=== PATIENT | male | born 1990 | race Caucasian/White ===

== ENCOUNTER → 2018-05-11 18:51 | Outpatient (CLI) | payer OTHER, SELFPAY ==
[2018-05-11 19:38] LABS: Basophils % 0.4 % (0.1-2.0); Eosinophils % 28.8 % (0.1-12.0); Hematocrit 43.3 % (42.0-52.0); Hemoglobin 14.5 g/dL (14.1-18.0); Lymphocytes # 1.9 K/mm3 (0.7-4.5); Lymphocytes % 18.4 % (10-50); Mean Corpuscular HGB Conc 33.6 g/dL (31.8-35.4); Mean Corpuscular Hemoglobin 29.6 pg (27.0-31.2); Mean Corpuscular Volume 88.2 fl (80-94); Mean Platelet Volume 8.4 fl (7.4-10.4); Monocytes # 0.5 K/mm3 (0.1-1.0); Monocytes % 4.9 % (1.7-9.3); Neutrophils # 4.9 K/mm3 (1.8-7.8); Neutrophils % 47.4 % (37.0-80.0); Platelet Count 241 K/mm3 (142-424); Red Blood Count 4.91 M/mm3 (4.60-6.20); Red Cell Distribution Width 12.4 % (11.5-17.5); White Blood Count 10.3 K/mm3 (4.8-10.8)
[2018-05-11 19:52] LABS: Amphetamine/Metha Screen,Urine Negative ng/mL (<1000); Barbiturates Screen,Urine Negative ng/mL (<200); Benzodiazepines Screen,Urine Negative ng/mL (<200); Cannabinoid Screen,Urine Negative ng/mL (<50); Cocaine Screen,Urine Negative ng/mL (<300); Methadone Screen,Urine Negative ng/mL (<300); Opiate Screen,Urine Negative ng/mL (<300); Phencyclidine Screen,Urine Negative ng/mL (<25)
== END ==
LOC: LAB 18:52 → LAB.DROPOF 05-12 09:56
PROVIDERS: Visit Provider Physician Assistant
DX: R16.1 Splenomegaly, not elsewhere classified (principal)
CPT/HCPCS: 80305; 85025

== ENCOUNTER → 2018-05-18 15:38 | Outpatient (CLI) | payer OTHER, SELFPAY ==
[2018-05-18 16:18] LABS: Basophils # 0.1 K/mm3 (0-0.2); Basophils % 0.7 % (0.1-2.0); Eosinophils # 1.8 K/mm3 (0.0-0.4); Eosinophils % 17.9 % (0.1-12.0); Hematocrit 44.9 % (42.0-52.0); Hemoglobin 14.9 g/dL (14.1-18.0); Lymphocytes # 3.2 K/mm3 (0.7-4.5); Lymphocytes % 31.2 % (10-50); Mean Corpuscular HGB Conc 33.1 g/dL (31.8-35.4); Mean Corpuscular Volume 87.5 fl (80-94); Mean Platelet Volume 8.1 fl (7.4-10.4); Monocytes # 0.6 K/mm3 (0.1-1.0); Monocytes % 5.5 % (1.7-9.3); Neutrophils # 4.6 K/mm3 (1.8-7.8); Neutrophils % 44.6 % (37.0-80.0); Platelet Count 278 K/mm3 (142-424); Red Blood Count 5.13 M/mm3 (4.60-6.20); Red Cell Distribution Width 12.5 % (11.5-17.5); White Blood Count 10.2 K/mm3 (4.8-10.8)
[2018-05-22 15:27] LABS: Strongyloides IgG Antibody Negative (Negative)
== END ==
PROVIDERS: Visit Provider Physician Assistant
DX: D72.1 Eosinophilia (principal)
CPT/HCPCS: 85025; 86682; 87177

== ENCOUNTER → 2018-05-19 08:22 | Outpatient (CLI) | payer OTHER, SELFPAY ==
--- NOTE | 2018-05-19 08:23 | US_ITS ---
US abdomen limited History:Upper abdominal pain Ordering Physician:TIFFANIE Kerr Patient Age: 28 years Comparison:None Findings: Pancreas:Unremarkable. No obvious mass or abnormal fluid collection. No ductal dilatation Liver:No focal liver lesions demonstrated. Homogeneous echogenicity. No intrahepatic biliary ductal dilatation evident Right Kidney:Unremarkable. Normal size and echogenicity. No hydronephrosis Gallbladder: Gallbladder wall slightly thickened at 4 mm. No pericholecystic fluid or gallstones or biliary dilatation. Common duct is 3 mm. IMPRESSION: Mild gallbladder wall thickening is nonspecific otherwise negative right upper quadrant ultrasound. No gallstones or other significant anomalies
== END ==
PROVIDERS: PCP Physician Assistant; Visit Provider Physician Assistant
DX: R10.13 Epigastric pain (principal)
CPT/HCPCS: 76705

== ENCOUNTER → 2018-08-25 15:48 | Outpatient (CLI) | payer OTHER, SELFPAY ==
[2018-08-25 16:34] LABS: T4 (Thyroxine) 8.7 ug/dl (4.7-13.3); Thyroid Stimulating Hormone 0.57 uIU/ml (0.358-3.740)
== END ==
PROVIDERS: Visit Provider Nurse Practitioner Family
DX: R63.4 Abnormal weight loss (principal)
CPT/HCPCS: 84436; 84443

== ENCOUNTER → 2018-10-05 09:33 | Outpatient (CLI) | payer OTHER, SELFPAY ==
--- NOTE | 2018-10-05 09:40 | XR_ITS ---
XR wrist RT min 3V, XR wrist LT min 3V Ordering Physician: Danilo Yoder Patient Age: 28 years: Male HISTORY: ITS.REASON: wrist painmass Bilateral wrist pain tingling in fingertips TECHNIQUE: Right wrist 3 views Left wrist 3 view. COMPARISON : Left forearm from 2011 RIGHT WRIST 3 VIEWS No fracture nor dislocation. Normal relationships. Bones well mineralized. No erosions. Upper normal prominence of the anterior fat pad at wrist IMPRESSION negative right wrist. WNL LEFT WRIST 3 VIEW. No acute fracture nor dislocation. There is 2 small ossifications seen just distal to the distal ulna and ulnar styloid. The largest 5 mm ovoid osseous density distal to the ulnar styloid- could reflect old fracture here versus dystrophic calcification or accessory ossification.. A tiny 2 mm calcification just proximal to this also noted with same considerations Perhaps very slight very subtle ulnar negative variant question of the left wrist and could contribute to this appearance as well Otherwise the left wrist intact and unremarkable. The distal radius appears normal with normal radial carpal relationships. Bones well mineralized. No erosions. . IMPRESSION: 2 tiny osseous corticated old fragments seen just distal to the ulnar styloid. Suspect more likely old healed fracture or old injury.... Less likely accessory ossicle associated,with very slight ulnar negative variance.. Otherwise the left wrist intact and unremarkable. No erosions normal carpal relationships in appearance
== END ==
PROVIDERS: PCP Emergency Medicine; Visit Provider Nurse Practitioner Family
DX: R20.0 Anesthesia of skin (principal); R20.2 Paresthesia of skin
CPT/HCPCS: 73110

== ENCOUNTER → 2018-10-16 10:09 | Outpatient (CLI) | payer OTHER, SELFPAY ==
[2018-10-18 06:56] LABS: Vitamin D 25 Hydroxy 20.4 ng/mL (30.0-100.0)
[2018-10-18 06:57] LABS: Vitamin B12 799 pg/mL (232-1245)
[2018-10-18 16:08] LABS: Testosterone, Total, LC/MS 304.5 ng/dL (264.0-916.0); Testosterone,Free 6.3 pg/mL (9.3-26.5)
== END ==
PROVIDERS: Visit Provider Nurse Practitioner Psychiatric/Mental Health
DX: R53.83 Other fatigue (principal); E55.9 Vitamin D deficiency, unspecified; E29.1 Testicular hypofunction
CPT/HCPCS: 36415; 82607; 82652; 84402; 84403

== ENCOUNTER → 2019-01-08 08:08 | Outpatient (POV) | payer OTHER, SELFPAY | PROVIDERS: PCP Specialist; Visit Provider Specialist | DX: R20.0 Anesthesia of skin (principal); R20.2 Paresthesia of skin | CPT/HCPCS: 95886; 95910 ==

== ENCOUNTER 2019-12-05 14:33 | Emergency (ER) | payer SELFPAY ==
[2019-12-05 14:45] VITALS: BP 144/85; PULSE 74; RESP 16; TEMP 36.8; O2SAT 99; BMI 19.0
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
[2019-12-05 15:20] VITALS: BP 140/80; PULSE 70; RESP 16; TEMP 36.7; O2SAT 98
== END 2019-12-05 15:25 | disposition home or self-care (01) ==
PROVIDERS: Emergency Provider Nurse Practitioner; PCP Emergency Medicine
DX: S09.90XA Unspecified injury of head, initial encounter (principal); Z02.89 Encounter for other administrative examinations; V53.5XXA Driver of pick-up truck or van injured in collision with car, pick-up truck or van in traffic accident, initial encounter; Y92.488 Other paved roadways as the place of occurrence of the external cause; F41.8 Other specified anxiety disorders; F17.210 Nicotine dependence, cigarettes, uncomplicated
CPT/HCPCS: 99201

== ENCOUNTER 2020-01-03 11:58 | Emergency (ER) | payer MEDICAID, SELFPAY ==
[2020-01-03 12:01] VITALS: BP 125/80; PULSE 87; RESP 17; TEMP 36.8; O2SAT 97; BMI 20.3
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
--- NOTE | 2020-01-03 12:35 | PC.NURSE ---
Pt is with rad. v/s delayed.
[2020-01-03 12:49] VITALS: BP 127/80; PULSE 86; O2SAT 97
[2020-01-03 13:50] VITALS: BP 125/62; PULSE 100; RESP 20; O2SAT 97
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
[2020-01-03 14:02] VITALS: BP 125/87; PULSE 80; RESP 20; TEMP 36.8; O2SAT 98
== END 2020-01-03 14:04 | disposition home or self-care (01) ==
PROVIDERS: Emergency Provider Family Medicine; PCP Emergency Medicine
DX: S10.93XA Contusion of unspecified part of neck, initial encounter (principal); W22.8XXA Striking against or struck by other objects, initial encounter; Y92.9 Unspecified place or not applicable; Z88.0 Allergy status to penicillin; F41.8 Other specified anxiety disorders; F17.210 Nicotine dependence, cigarettes, uncomplicated
CPT/HCPCS: 70450; 70486; 72125; 99282

== ENCOUNTER 2020-02-14 20:05 | Emergency (ER) | payer MEDICAID, SELFPAY ==
[2020-02-14 20:23] VITALS: BP 137/88; PULSE 96; RESP 14; TEMP 36.4; O2SAT 100; BMI 18.3
[2020-02-14 20:42] VITALS: BP 137/88; PULSE 96; RESP 14; TEMP 36.4; O2SAT 100; BMI 18.3
--- NOTE | 2020-02-14 20:46 | HMH.EDUTC ---
[facility] [place] Disposition Clinical Impression: Constipation Qualifiers: Constipation type: unspecified constipation type Qualified Code(s): K59.00 - Constipation, unspecified Disposition: Home, Self-Care Condition on Discharge: Good Instructions: Constipation, DI for Constipation, Polyethylene Glycol 3350, DI for Nausea -- Adult Additional Instructions: Make sure that you are drinking plenty of fluids like water *Take Mirlax as prescribed to help with passing of dry and hard stool *Follow up with Family Doctor immediately if no improvement or if area in your lower abdomen recurs Follow up with Family doctor for further testing and evaluation Straight to ER if any worsening of symptoms or any life threatening symptoms Return if needed Prescriptions: Ondansetron [Zofran 4mg ODT] 4 mg PO Q8HP PRN #6 tab PRN Reason: Nausea Transmission Status: Pending to [id number] polyethylene glycoL 3350 [Miralax 17gm Packet] 17 gm PO DAILY #30 packet Transmission Status: Received by [id number] Referrals: PCP,No [Primary Care Provider] - As needed Forms: Work/School Release Medical Decision Making - Nelson Inquiry Pt receiving controlled substance: No Nelson was queried for this patient: No Vital Signs: 02/14/20 20:23 02/14/20 20:42 Temperature 97.6 F 97.6 F Temperature Source Oral Oral Pulse Rate [Right] 96 H 96 H Respiratory Rate 14 14 Blood Pressure [Left Arm] 137/88 137/88 Blood Pressure Mean [Left Arm] 104 104 Blood Pressure Source [Left Arm] Automatic Cuff Automatic Cuff Blood Pressure Position [Left Arm] Sitting Sitting 02 Sat by Pulse Oximetry 100 100 Oxygen Delivery Method Room Air Room Air Medical Decision Narrative: Discussed with patient that if he is still having abdominal pain that he could be transferred back to the ED for further work up and evaluation. States that he did not want to go to ER that his pain was better now and knot was gone Recommended if patient is having issues with Constipation that he start taking Mirlax to help with softening the stool and follow up with Family Doctor immediately for further testing and evaluation of possible hernia or other stomach problems patient agreed and again recommended transfer to the ED for possible CT or work up and patient declined at this time [facility] [place] HPI - General Stated complaint: Poss allergic reaction, hernia pain Time Seen by Provider: 02/14/20 20:46 Mode of Arrival: Ambulatory Source of Information: Patient Limitations: No Limitations Description of Symptoms (Recalled from Triage Doc. by RN): Pt states he is constipated and feels hot and flushed - History of Present Illness Provider Complaint: Patient states that earlier he felt like he was constipated and was on the toilet straining to go and felt warm and flush States that he noticed it looked like a little knot popped out in his lower groin area but then went away after he stopped straining States that this has been happening on and off for years and has always had issues with constipation States that someone had given him some powder' once and it helped some States that he is feeling better now but still came in - Related Data Home Medications Medication Instructions Recorded Confirmed buprenorphine 8 mg-naloxone 2 mg 8 mg SUBLINGUAL DAILY 7 Days #14 08/25/12/05/19 sublingual tablet tab Previous Rx's Medication Instructions Recorded Ondansetron [Zofran 4mg ODT] 4 mg PO Q8HP PRN #6 tab 02/14/20 polyethylene glycoL 3350 [Miralax 17 gm PO DAILY #30 packet 02/14/20 17gm Packet] Allergies Allergy/AdvReac Type Severity Reaction Status Date / Time penicillin G [PENICILLIN G] Allergy Mild Verified 12/05/19 14:59 [facility] History - Hepatitis A Screen Attestation statement:: This patient has been screened for Hepatitis A risk factors. I have reviewed the patient's past medical history: Yes Medical History: Reports:: Anxiety, Depression
[2020-02-14 21:08] VITALS: BP 137/88; PULSE 96; RESP 14; TEMP 36.4; O2SAT 100
== END 2020-02-14 21:12 | disposition home or self-care (01) ==
LOC: ER 20:24 → UTC 20:25
PROVIDERS: Emergency Provider Nurse Practitioner
DX: K59.00 Constipation, unspecified (principal); F41.8 Other specified anxiety disorders; F17.210 Nicotine dependence, cigarettes, uncomplicated; Z88.0 Allergy status to penicillin
CPT/HCPCS: 99201

== ENCOUNTER 2020-12-05 17:39 | Emergency (ER) | payer OTHER, SELFPAY ==
[2020-12-05 17:40] VITALS: BP 132/70; PULSE 92; RESP 18; TEMP 36.7; O2SAT 100; BMI 19.5
--- NOTE | 2020-12-05 18:18 | HMH.EDUTC ---
[facility] [place] Disposition Clinical Impression: Enlarged lymph nodes in armpit, Rash Disposition: Home, Self-Care Condition on Discharge: Good Instructions: DI for Rash Additional Instructions: follow up with pcp change deodorant Prescriptions: Sulfamethoxazole/Trimethoprim [Bactrim DS tablet] 1 each PO BID 10 Days #20 tab Transmission Status: Pending to [id number] Referrals: Danilo Yoder APRN [Primary Care Provider] - Time of Disposition: 18:25 Medical Decision Making - Nelson Inquiry Pt receiving controlled substance: No Vital Signs: 12/05/20 17:40 Temperature 98.0 F Temperature Source Temporal Artery Scan Pulse Rate [Right Brachial] 92 H Respiratory Rate 18 Blood Pressure [Right Arm] 132/70 Blood Pressure Mean [Right Arm] 90 Blood Pressure Source [Right Arm] Automatic Cuff Blood Pressure Position [Right Arm] Sitting 02 Sat by Pulse Oximetry 100 Oxygen Delivery Method Room Air [facility] [place] HPI - General Chief complaint: Urgent [facility] Stated complaint: rash on both arms Time Seen by Provider: 12/05/20 18:18 Mode of Arrival: Ambulatory Source of Information: Patient, Spouse Limitations: No Limitations Description of Symptoms (Recalled from Triage Doc. by RN): PATIENT C/O RASH WITH BLISTERS UNDER BILATERAL ARMPITS X 3 DAYS. C/O BURNING AND THROBBING TO RASH AREAS HEENT Symptoms (Recalled from RN notes): No Resp Symptoms (Recalled from RN notes): No Skin Symptoms (Recalled from RN notes): Yes MS Symptoms (Recalled from RN notes): No Functional Status (Recalled from RN notes): WNL - History of Present Illness Provider Complaint: 30 yr old male presents for painful rash unber both arms, pt states he has small knots and they are tender - Related Data Home Medications Medication Instructions Recorded Confirmed buprenorphine 8 mg-naloxone 2 mg 8 mg SUBLINGUAL DAILY 7 Days #14 08/25/18 12/05/20 sublingual tablet tab Previous Rx's Medication Instructions Recorded Sulfamethoxazole/Trimethoprim 1 each PO BID 10 Days #20 tab 12/05/20 [Bactrim DS tablet] Allergies Allergy/AdvReac Type Severity Reaction Status Date / Time penicillin G [PENICILLIN G] Allergy Mild Verified 12/05/19 14:59 - Worker's Comp Is this a Worker's Comp case?: No [facility] History - Hepatitis A Screen Drug use history?: No High risk sexual behaviors?: No History of sexually transmitted infection?: No Currently employed?: No Childcare worker?: No Do you have indoor plumbing?: Yes Do you have electricity?: Yes Attestation statement:: This patient has been screened for Hepatitis A risk factors. I have reviewed the patient's past medical history: Yes Medical History: Reports:: Anxiety, Depression Laterality Cases: Bilateral: Other Amputation: No Fractures: No Comment: Left elbow at [facility] 13 years ago. - 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 Smoking Status: Current every day smoker Tobacco Type: cigarettes # Packs/Day (cigarettes): 1 Alcohol Intake: never Substance Use Type: heroin, other, former substance user, opiates Occupational Status: other Housing: house - Psychiatric History Pschychiatric History:: Reports:: Anxiety, Depression Family Hx:: No significant family history ROS Obtained: Yes Systems reviewed as appropriate & no additional complaints - Constitutional Constitutional: Reports system reviewed and no additional complaints, except as docu, Denies fever(s) - Eyes Eyes: Reports system reviewed and no additional complaints, except as docu, Denies change in vision - ENT Ears, Nose, Mouth, and Throat: Reports system reviewed and no additional complaints, except as docu, Denies sore throat - Cardiovascular Cardiovascular: Reports system reviewed and no additional complaints, except as docu, Denies chest pain at rest - Respiratory Respiratory: Reports system reviewed and no additional complaints, except as docu, Denies change in phlegm color - Gastrointestinal Gastrointestingal: Reports: system
[2020-12-05 18:24] VITALS: BP 132/70; PULSE 92; RESP 18; TEMP 36.7; O2SAT 100
== END 2020-12-05 18:31 | disposition home or self-care (01) ==
PROVIDERS: Emergency Provider Nurse Practitioner Family; PCP Nurse Practitioner Family
DX: R59.0 Localized enlarged lymph nodes (principal); F41.8 Other specified anxiety disorders; F17.210 Nicotine dependence, cigarettes, uncomplicated
CPT/HCPCS: 99202; G0463

== ENCOUNTER 2021-03-01 13:00 | Emergency (ER) | payer OTHER, SELFPAY ==
[2021-03-01 15:30] VITALS: BP 129/78; PULSE 83; RESP 14; TEMP 36.6; O2SAT 100; BMI 19.6
--- NOTE | 2021-03-01 16:01 | HMH.EDUTC ---
[facility] [place] Clinical Impression: Upper respiratory infection, Exposure to COVID-19 virus Disposition: Home, Self-Care Condition on Discharge: Good Instructions: Preventing the Spread of Coronavirus Discharge Instructions Additional Instructions: You have been tested for COVID19. Please isolate yourself as if you are positive until test results received. Referrals: Provider,Referral, [Primary Care Provider] - Forms: Work/School Release Time of Disposition: 16:04 Medical Decision Making - Nelson Inquiry Pt receiving controlled substance: No Vital Signs: 03/01/21 15:30 Temperature 98 F Temperature Source Oral Pulse Rate [Left] 83 Respiratory Rate 14 Blood Pressure [Right Arm] 129/78 Blood Pressure Mean [Right Arm] 95 02 Sat by Pulse Oximetry 100 Orders (Tests/Meds): ORDERS Category Date Time Status Covid-19 Nasal PCR ([facility]) Routine Lab 03/01/21 15:36 Received [facility] [place] HPI - General Stated complaint: sore throat, weakness, v/d sob Time Seen by Provider: 03/01/21 16:01 Mode of Arrival: Ambulatory Source of Information: Patient Limitations: No Limitations Description of Symptoms (Recalled from Triage Doc. by RN): pt c/o of n/v, body aches, dizziness, THACKER and lethargy. HEENT Symptoms (Recalled from RN notes): Yes (THACKER and dizziness) Resp Symptoms (Recalled from RN notes): No Skin Symptoms (Recalled from RN notes): No MS Symptoms (Recalled from RN notes): No Functional Status (Recalled from RN notes): lethargy and body aches - History of Present Illness Provider Complaint: Headache, sore throat, body aches, N/V/D, shortness of breath, wheezing X 4 days. Feeling better today. Exposed to COVID19 at work. Onset (ago): day(s) (4) Relieving factors: none Exacerbating factors: none Associated symptoms: cough, fever/chills, headaches, malaise, nausea/vomiting, weakness Treatments prior to arrival: none - Related Data Home Medications Medication Instructions Recorded Confirmed buprenorphine 8 mg-naloxone 2 mg 8 mg SUBLINGUAL DAILY 7 Days #14 08/25/18 12/05/20 sublingual tablet tab Previous Rx's Medication Instructions Recorded Sulfamethoxazole/Trimethoprim 1 each PO BID 10 Days #20 tab 12/05/20 [Bactrim DS tablet] Allergies Allergy/AdvReac Type Severity Reaction Status Date / Time penicillin G [PENICILLIN G] Allergy Mild Verified 12/05/19 14:59 - Worker's Comp Is this a Worker's Comp case?: No [facility] History - Hepatitis A Screen Drug use history?: No High risk sexual behaviors?: No History of sexually transmitted infection?: No Currently employed?: No Childcare worker?: No Do you have indoor plumbing?: Yes Do you have electricity?: Yes Attestation statement:: This patient has been screened for Hepatitis A risk factors. I have reviewed the patient's past medical history: Yes Medical History: Reports:: Anxiety, Depression Laterality Cases: Bilateral: Other Amputation: No Fractures: No Comment: Left elbow at 14 years ago. - 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 Smoking Status: Current every day smoker Tobacco Type: cigarettes # Packs/Day (cigarettes): 1 Alcohol Intake: never Substance Use Type: heroin, other, former substance user, opiates Occupational Status: other Housing: house - Psychiatric History Pschychiatric History:: Reports:: Anxiety, Depression Family Hx:: No significant family history ROS Obtained: Yes All systems reviewed & no additional complaints - Constitutional Constitutional: Reports body ache, Reports chills, Reports fatigue, Reports fever(s), Reports malaise - ENT Ears, Nose, Mouth, and Throat: Reports sinus pressure, Reports sore throat - Respiratory Respiratory: Reports cough - Gastrointestinal Gastrointestingal: Reports: loose stools, nausea, vomiting Physical Exam - General General appearance: alert, in no apparent distress - Head Head exam: normocephalic - Eye Eye exam: Present: PERRL - ENT ENT exam: Present: normal simon
[2021-03-01 16:30] VITALS: BP 129/78; PULSE 82; RESP 18; TEMP 36.6
== END 2021-03-01 16:30 | disposition home or self-care (01) ==
PROVIDERS: Emergency Provider Physician Assistant
DX: J06.9 Acute upper respiratory infection, unspecified (principal); Z20.822 Contact with and (suspected) exposure to COVID-19; F17.210 Nicotine dependence, cigarettes, uncomplicated
CPT/HCPCS: 99202; G0463; U0003

== ENCOUNTER 2021-08-04 19:04 | Emergency (ER) | payer OTHER, SELFPAY ==
[2021-08-04 20:10] VITALS: BP 136/86; PULSE 64; RESP 18; TEMP 36.7; O2SAT 99; BMI 17.8
[2021-08-04 20:40] VITALS: BP 136/86; PULSE 64; RESP 18; TEMP 36.7; O2SAT 99
== END 2021-08-04 20:43 | disposition left against medical advice (07) ==
LOC: UTC 19:10
PROVIDERS: Emergency Provider Nurse Practitioner; PCP Nurse Practitioner Family
DX: Z20.822 Contact with and (suspected) exposure to COVID-19 (principal)
CPT/HCPCS: C9803; U0003; U0005

== ENCOUNTER 2021-08-31 08:05 | Emergency (ER) | payer OTHER, SELFPAY ==
[2021-08-31 08:07] VITALS: BP 123/64; PULSE 75; RESP 16; TEMP 37; O2SAT 100; BMI 18.3
--- NOTE | 2021-08-31 09:00 | PC.NURSE ---
pt presented in ER said he had acid in his right eye pt unable to open eye immediately started flushing eye , tetracaine used pt was able to open eye and vsion was good just some redness and alot of burning go lense applied with NACL flushing eye
[2021-08-31 10:10] VITALS: BP 129/67; PULSE 79; RESP 18; O2SAT 100
--- NOTE | 2021-08-31 10:22 | PC.NURSE ---
message left for Dr Sheehan
--- NOTE | 2021-08-31 10:37 | PC.NURSE ---
MD at bedside speaking with patient
--- NOTE | 2021-08-31 10:47 | HMH.EDEYEP ---
ED Disposition Clinical Impression: Eye burn Disposition: Home, Self-Care Condition on Discharge: Good Instructions: DI for Chemical Eye Burn Additional Instructions: Please go straight to [facility] to be evaluated by ophthalmology physician, Dr. Hernandez at [address] [place] [id number]. Phone number [phone]. Referrals: Danilo Yoder APRN [Primary Care Provider] - Time of Disposition: 11:30 - Critical Care Critical Care Time: No Attestation: On 08/31/21, the high probability of a clinically significant, sudden or life threatening deterioration of the following system(s) required my full and direct attention, intervention and personal management. The time I documented below is in addition to time spent performing reported procedures but includes the following listed in this critical care notation. Medical Decision Making - Medical Records Medical records reviewed: Yes: I reviewed the patient's medical records. - Nelson Inquiry Pt receiving controlled substance: No Vital Signs: 08/31/21 08:07 08/31/21 10:10 08/31/21 11:23 Temperature 98.6 F 98.3 F Temperature Source Oral Oral Pulse Rate 79 80 Pulse Rate [Left Radial] 75 Respiratory Rate 16 18 16 Blood Pressure 129/67 110/70 Blood Pressure [Right Arm] 123/64 Blood Pressure Mean [Right Arm] 83 Blood Pressure Source Automatic Cuff Blood Pressure Source [Right Arm] Automatic Cuff Blood Pressure Position Sitting Blood Pressure Position [Right Arm] Sitting 02 Sat by Pulse Oximetry 100 100 Oxygen Delivery Method Room Air Room Air - Lab Data Lab results reviewed: Yes: I reviewed the patient's lab results. Medical Decision Narrative: Mr. Kohler is a 31 yo male w/ no significant PMH who presents to the ED for isolated (L) eye caustic splash. Patient is hemodynamically stable on arrival. Physical exam patient has blurry vision in (L) eye with conjunctiva erythema. Patient has photophobia and copious clear tears from eye. Mortan Ludwig Lens is placed on the patients eye irrigated with 350ml of normal saline. Visual aquity is rechecked, patients has clear vision now, burning has resolved. He reports a foreign body sensation but denies any other symptoms. Opthamology, Dr. Hernandez is consulted and will see patient in office today. Patient is sent to Opthamology's office for further management with eye patch to help with light sensitivity. Eye Problem HPI - General Chief complaint: Eye Problems Stated complaint: sodium hydroxice in left eye Time Seen by Provider: 08/31/21 08:15 Mode of Arrival: Ambulatory Source of Information: Patient Limitations: No Limitations Description of Symptoms (Recalled from ER Triage Doc. by RN): c/o some errosion solution splashed in his left eye approx 30 minutes prior to arrival. Flushed eye at worksite and then proceeded to er - History of Present Illness HPI Narrative: Mr. Kohler is a 31 yo male w/ no significant PMH who presents to the ED after getting a caustic agent, NaOH in his (L) eye. Patient reports he was working and splashed sodium hydroxide accidentally into his (L) eye. Immediately following this he reports burning sensation. He took vinegar to irrigate his eye and came straight ot emergency department. He reports he can see but vision is blurry. No obvious foreign bodies noted. - Related Data Home Medications Medication Instructions Recorded Confirmed buprenorphine 8 mg-naloxone 2 mg 8 mg SUBLINGUAL DAILY 7 Days #14 08/25/18 08/04/21 sublingual tablet tab Allergies Allergy/AdvReac Type Severity Reaction Status Date / Time penicillin G [PENICILLIN G] Allergy Mild Verified 12/05/19 14:59 H History - Hepatitis A Screen Drug use history?: Yes High risk sexual behaviors?: No History of sexually transmitted infection?: No Currently employed?: No Childcare worker?: No Do you have indoor plumbing?: Yes Do you have electricity?: Yes Attestation statement:: This pat
--- NOTE | 2021-08-31 10:48 | PC.NURSE ---
Dr Sheehan returned page, spoke with dr Cruz, he advised to send pt to his office.
[2021-08-31 11:23] VITALS: BP 110/70; PULSE 80; RESP 16; TEMP 36.8; O2SAT 98
== END 2021-08-31 11:26 | disposition home or self-care (01) ==
PROVIDERS: Emergency Provider Student in an Organized Health Care Education/Training Program; PCP Nurse Practitioner Family
DX: T54.3X1A Toxic effect of corrosive alkalis and alkali-like substances, accidental (unintentional), initial encounter (principal); T26.62XA Corrosion of cornea and conjunctival sac, left eye, initial encounter; Y92.63 Factory as the place of occurrence of the external cause; Y99.0 Civilian activity done for income or pay; Z88.0 Allergy status to penicillin
CPT/HCPCS: 99283

== ENCOUNTER 2021-10-20 14:23 | Emergency (ER) | payer OTHER, SELFPAY ==
[2021-10-20 14:39] VITALS: BP 124/80; PULSE 101; RESP 16; TEMP 36.6; O2SAT 100; BMI 20.3
--- NOTE | 2021-10-20 15:12 | HMH.EDUTC ---
[facility] [place] Dis[place] Clinical Impression: Otitis media Qualifiers: Otitis media type: suppurative Chronicity: acute Laterality: bilateral Recurrence: non-recurrent Spontaneous tympanic membrane rupture: without spontaneous rupture Qualified Code(s): H66.003 - Acute suppurative otitis media without spontaneous rupture of ear drum, bilateral Disposition: Home, Self-Care Condition on Discharge: Good Instructions: Middle Ear Infection Additional Instructions: Drink plenty of fluids. Take tylenol or ibuprofen for pain or fever. Take the medications as directed. Follow up with your regular doctor. GO TO THE ER FOR ANY WORSENING SYMPTOMS Prescriptions: Pseudoephedrine HCl 30 mg PO Q6HP PRN #30 tab PRN Reason: Congestion Transmission Status: Received by [facility] methylPREDNISolone [Medrol] 4 mg PO DIRECTED 6 Days #21 packet Transmission Status: Received by [facility] Cefdinir [Omnicef 300mg Capsule] 300 mg PO BID #20 cap Transmission Status: Received by [facility] Referrals: Danilo Yoder APRN [Primary Care Provider] - Forms: Work/School Release Time of Disposition: 15:17 Medical Decision Making - Medical Records Medical records reviewed: No: I reviewed the patient's medical records. - Nelson Inquiry Pt receiving controlled substance: No Vital Signs: 10/20/21 14:39 10/20/21 15:22 Temperature 97.8 F 97.8 F Temperature Source Oral Oral Pulse Rate 101 H Pulse Rate [Left] 101 H Respiratory Rate 16 16 Blood Pressure 124/80 Blood Pressure [Right Arm] 124/80 Blood Pressure Mean [Right Arm] 94 02 Sat by Pulse Oximetry 100 - Lab Data Lab results reviewed: Yes: I reviewed the patient's lab results. [facility] [place] HPI - General Stated complaint: left ear pain Time Seen by Provider: 10/20/21 15:15 Mode of Arrival: Ambulatory Description of Symptoms (Recalled from Triage Doc. by RN): pain started last night. left inner ear has been throbbing so bad that it feels like his jaw is popping out of place. pt states he can hardly touch ear ot put qtip in it. HEENT Symptoms (Recalled from RN notes): Yes Resp Symptoms (Recalled from RN notes): No Skin Symptoms (Recalled from RN notes): No MS Symptoms (Recalled from RN notes): Yes Functional Status (Recalled from RN notes): wnl - History of Present Illness Provider Complaint: He c/o left ear pain since yesterday. He denies any injury. - Related Data Home Medications Medication Instructions Recorded Confirmed buprenorphine 8 mg-naloxone 2 mg 8 mg SUBLINGUAL DAILY 7 Days #14 08/25/18 08/04/21 sublingual tablet tab Previous Rx's Medication Instructions Recorded Cefdinir [Omnicef 300mg Capsule] 300 mg PO BID #20 cap 10/20/21 Pseudoephedrine HCl 30 mg PO Q6HP PRN #30 tab 10/20/21 methylPREDNISolone [Medrol] 4 mg PO DIRECTED 6 Days #21 10/20/21 packet Allergies Allergy/AdvReac Type Severity Reaction Status Date / Time penicillin G [PENICILLIN G] Allergy Mild Verified 10/20/21 14:43 - Worker's Comp Is this a Worker's Comp case?: No Is this an H Worker's Comp?: No Is this a [place] Worker's Comp?: No [facility] History - Hepatitis A Screen Drug use history?: No High risk sexual behaviors?: No History of sexually transmitted infection?: No Currently employed?: No Childcare worker?: No Do you have indoor plumbing?: Yes Do you have electricity?: Yes Attestation statement:: This patient has been screened for Hepatitis A risk factors. I have reviewed the patient's past medical history: Yes Medical History: Reports:: Anxiety, Depression Laterality Cases: Bilateral: Other Amputation: No Fractures: No Comment: Left elbow at 14 years ago. - 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 Smoking Status: Unknown if ever smoked Tobacco Type: smokeless tobacco # Packs/Day (cigarettes): 0 Alcohol Intake: never Substance Use Type: heroin, other, former substance user, opiates Occupational Status
[2021-10-20 15:22] VITALS: BP 124/80; PULSE 101; RESP 16; TEMP 36.6
== END 2021-10-20 15:23 | disposition home or self-care (01) ==
PROVIDERS: Emergency Provider Nurse Practitioner Family; PCP Nurse Practitioner Family
DX: H66.003 Acute suppurative otitis media without spontaneous rupture of ear drum, bilateral (principal); F41.8 Other specified anxiety disorders; Z88.0 Allergy status to penicillin
CPT/HCPCS: 99212; G0463

== ENCOUNTER 2021-10-27 16:00 | Emergency (ER) | payer OTHER, SELFPAY ==
[2021-10-27 16:11] VITALS: BP 141/93; PULSE 108; RESP 20; TEMP 36.6; O2SAT 97; BMI 20.3
--- NOTE | 2021-10-27 16:31 | HMH.EDUTC ---
[facility] [place] Disposition Clinical Impression: Otitis media Qualifiers: Otitis media type: unspecified Laterality: left Qualified Code(s): H66.92 - Otitis media, unspecified, left ear Otitis externa Qualifiers: Otitis externa type: unspecified type Chronicity: unspecified Laterality: left Qualified Code(s): H60.92 - Unspecified otitis externa, left ear Disposition: Home, Self-Care Condition on Discharge: Good Instructions: How to Instill Ear Drops, Azithromycin Additional Instructions: Stop Cefdinir and start azithromycin and ear drops as prescribed Follow up with Family Doctor or ENT if pain persists or no improvement Return if needed Over the counter Motrin and/or Tylenol may help with pain Straight to ER if any life threatening symptoms Prescriptions: Ciprofloxacin HCl/Dexameth [Cipro 0.3%-Dex 0.1% Otic Susp 7.5mL] 4 drops EAR-LEFT BID 7 Days #7.5 ml Transmission Status: Pending to [facility] Azithromycin [Z-Leon 250mg Tab] 250 mg PO DIRECTED #6 tab Transmission Status: Pending to [facility] Referrals: Danilo Yoder APRN [Primary Care Provider] - As needed Amado Lujan MD [Physician] - Jaxson Brenner MD [Physician] - Forms: Work/School Release Time of Disposition: 17:17 Medical Decision Making - Nelson Inquiry Pt receiving controlled substance: No Nelson was queried for this patient: No Vital Signs: 10/27/21 16:11 Temperature 97.8 F Temperature Source Oral Pulse Rate [Left] 108 H Respiratory Rate 20 Blood Pressure [Right Arm] 141/93 H Blood Pressure Mean [Right Arm] 109 02 Sat by Pulse Oximetry 97 [facility] [place] HPI - General Stated complaint: LEFT EAR AND LEFT JAW PAIN Time Seen by Provider: 10/27/21 17:05 Mode of Arrival: Ambulatory Source of Information: Patient Limitations: No Limitations Description of Symptoms (Recalled from Triage Doc. by RN): pt c/o left ear pain. he states that the pain is throbbing and he is now leaking infection from his ear. he states that it feels like the infection is now in his jaw and neck as well he has been on abx for 1 week. HEENT Symptoms (Recalled from RN notes): Yes Resp Symptoms (Recalled from RN notes): No Skin Symptoms (Recalled from RN notes): No MS Symptoms (Recalled from RN notes): No Functional Status (Recalled from RN notes): wnl - History of Present Illness Provider Complaint: Patient states that he has been on antibiotics for a week for ear infection States that it has got worse States that he has been taking the antibotics but now feels like he is having swelling and at times draining from that ear and pain in ear when he moves his jaw or opens his mouth States that today he was still having pain so he came in - Related Data Home Medications Medication Instructions Recorded Confirmed buprenorphine 8 mg-naloxone 2 mg 8 mg SUBLINGUAL DAILY 7 Days #14 08/25/18 08/04/21 sublingual tablet tab Previous Rx's Medication Instructions Recorded Cefdinir [Omnicef 300mg Capsule] 300 mg PO BID #20 cap 10/20/21 Pseudoephedrine HCl 30 mg PO Q6HP PRN #30 tab 10/20/21 methylPREDNISolone [Medrol] 4 mg PO DIRECTED 6 Days #21 10/20/21 packet Azithromycin [Z-Leon 250mg Tab] 250 mg PO DIRECTED #6 tab 10/27/21 Ciprofloxacin HCl/Dexameth [Cipro 4 drops EAR-LEFT BID 7 Days #7.5 ml 10/27/21 0.3%-Dex 0.1% Otic Susp 7.5mL] Allergies Allergy/AdvReac Type Severity Reaction Status Date / Time penicillin G [PENICILLIN G] Allergy Mild Verified 10/27/21 16:18 - Worker's Comp Is this a Worker's Comp case?: No Is this an H Worker's Comp?: No Is this a [place] Worker's Comp?: No [facility] History - Hepatitis A Screen Drug use history?: No High risk sexual behaviors?: No History of sexually transmitted infection?: No Currently employed?: No Childcare worker?: No Do you have indoor plumbing?: Yes Do you have electricity?: Yes Attestation statement:: This patient has been screened for Hepatitis A ris
[2021-10-27 17:20] VITALS: BP 141/93; PULSE 108; RESP 20; TEMP 36.6
== END 2021-10-27 17:21 | disposition home or self-care (01) ==
PROVIDERS: Emergency Provider Nurse Practitioner; PCP Nurse Practitioner Family
DX: H60.92 Unspecified otitis externa, left ear (principal); R68.84 Jaw pain; F32.A Depression, unspecified; F41.9 Anxiety disorder, unspecified; Z79.52 Long term (current) use of systemic steroids; Z88.0 Allergy status to penicillin
CPT/HCPCS: 99213; G0463

== ENCOUNTER 2021-10-28 22:24 | Emergency (ER) | payer OTHER, SELFPAY ==
[2021-10-28 23:05] VITALS: BP 0/0; PULSE 0; RESP 0; TEMP -17.7; TEMP 0; O2SAT 0
== END 2021-10-28 23:10 | disposition left against medical advice (07) ==
LOC: ER 23:09
PROVIDERS: Emergency Provider Emergency Medicine; PCP Nurse Practitioner Family
DX: H92.02 Otalgia, left ear (principal); Z53.21 Procedure and treatment not carried out due to patient leaving prior to being seen by health care provider
CPT/HCPCS: 99211

== ENCOUNTER 2022-01-24 11:10 | Emergency (ER) | payer OTHER, SELFPAY ==
[2022-01-24 11:11] VITALS: BP 120/91; PULSE 80; RESP 16; TEMP 36.6; O2SAT 100; BMI 19.0
[2022-01-24 11:16] VITALS: BP 120/91; PULSE 76; O2SAT 100
--- NOTE | 2022-01-24 11:22 | XR_ITS ---
PROCEDURE INFORMATION: Exam: XR Chest Exam date and time: 01/24/2022 11:43 AM Age: 31 years old Clinical indication: Shortness of breath; Patient HX: Covid positive; Additional info: Cough TECHNIQUE: Imaging protocol: Radiologic exam of the chest. Views: 1 view. COMPARISON: CR CXR2V XR chest 2V 03/12/2018 12:54 AM FINDINGS: Lungs: Unremarkable. No consolidation. Pleural spaces: Unremarkable. No pleural effusion. No pneumothorax. Heart/Mediastinum: Unremarkable. No cardiomegaly. Bones/joints: Unremarkable. IMPRESSION: No acute cardiopulmonary process is identified.
[2022-01-24 11:30] VITALS: BP 113/79; PULSE 71; O2SAT 100
--- NOTE | 2022-01-24 11:32 | PC.NURSE ---
rad here to take xrays of pt
--- NOTE | 2022-01-24 11:58 | HMH.EDGENADL ---
ED Disposition Clinical Impression: COVID-19 Disposition: Home, Self-Care Condition on Discharge: Fair Instructions: DI for COVID-19 (Suspected or Confirmed ) Additional Instructions: You have been evaluated for body aches, nausea, generalized malaise, likely due to COVID-19 virus. Please monitor your symptoms closely. Take Tylenol for aches, pains, fever. Take Zofran for nausea. Follow-up with your primary care doctor in 1 to 2 days for symptom recheck. Return to the emergency department at once for any new or worsening symptoms, difficulty breathing, chest pain, other concerns. Prescriptions: Ondansetron [Zofran 4mg ODT] 4 mg PO Q6 PRN #12 tab PRN Reason: Nausea Transmission Status: Pending to [facility] Referrals: Catherine Winchester MD [Primary Care Provider] - Time of Disposition: 12:06 - Critical Care Critical Care Time: No Attestation: On 01/24/22, the high probability of a clinically significant, sudden or life threatening deterioration of the following system(s) required my full and direct attention, intervention and personal management. The time I documented below is in addition to time spent performing reported procedures but includes the following listed in this critical care notation. Medical Decision Making - Medical Records Medical records reviewed: Yes: I reviewed the patient's medical records. - Nelson Inquiry Pt receiving controlled substance: No Vital Signs: 01/24/22 11:11 01/24/22 11:16 01/24/22 11:30 Temperature 97.8 F Temperature Source Oral Pulse Rate 76 71 Pulse Rate [Left Radial] 80 Respiratory Rate 16 Blood Pressure 120/91 H 113/79 Blood Pressure [Right Arm] 120/91 H Blood Pressure Mean 99 90 Blood Pressure Mean [Right Arm] 100 Blood Pressure Source [Right Arm] Automatic Cuff Blood Pressure Position [Right Arm] Sitting 02 Sat by Pulse Oximetry 100 100 100 Oxygen Delivery Method Room Air Orders (Tests/Meds): ED MEDICATIONS Discontinued Medications Generic Name Dose Route Start Last Admin Trade Name Freq PRN Reason Stop Dose Admin Acetaminophen 1,000 mg 01/24/22 11:35 01/24/22 11:41 Acetaminophen 500mg Tab PO 01/24/22 11:36 1,000 mg ONCE ONE Administration Ibuprofen 600 mg 01/24/22 11:36 01/24/22 11:42 Ibuprofen 600 Mg Tablet PO 01/24/22 11:37 600 mg ONCE ONE Administration Ondansetron HCl 4 mg 01/24/22 11:36 01/24/22 11:41 Ondansetron 4mg/5ml Nicole Udc PO 01/24/22 11:37 4 mg ONCE ONE Administration Medical Decision Narrative: In summary this is a previous healthy 31-year-old male presenting to the emergency department with body aches, fatigue, nausea, symptoms of COVID-19. Patient clinically stable on arrival. Vital signs within normal limits. He is afebrile. No respiratory difficulty. No hypoxia on room air. Will obtain screening chest x-ray. Given acetaminophen and Zofran. Chest x-ray reassuring. No focal opacity or multifocal pneumonia. On reassessment, patient is tolerating oral intake, Gatorade in the emergency department. He continues to feel generally unwell, body aches and malaise. Counseled him on supportive care. Do not believe that he would benefit from hospitalization. No respiratory difficulty at this time. Recommended he monitor his symptoms closely. Follow-up with PCP for symptom recheck. Given return precautions. Stable for discharge General Adult HPI - General Chief complaint: Upper Respiratory Infection Stated complaint: covid pos, worsening symptoms Time Seen by Provider: 01/24/22 11:29 Mode of Arrival: Ambulatory Source of Information: Patient Limitations: No Limitations Description of Symptoms (Recalled from ER Triage Doc. by RN): c/o THACKER, body aches since and n/v today. Tested positive for covid on with a home test - History of Present Illness HPI narrative: 31-year-old male presenting to the emergency department with cough,
[2022-01-24 12:06] VITALS: BP 122/79; PULSE 87; RESP 12; O2SAT 99
--- NOTE | 2022-01-24 12:12 | PC.NURSE ---
rounded on pt, no needs at this time, isolation precautions are in place
[2022-01-24 12:52] VITALS: BP 119/74; PULSE 85; RESP 18; TEMP 36.7; O2SAT 100
== END 2022-01-24 12:53 | disposition home or self-care (01) ==
PROVIDERS: Emergency Provider Emergency Medicine; PCP Family Medicine
DX: U07.1 COVID-19 (principal)
CPT/HCPCS: 71045; 99212; G0463; S0119

== ENCOUNTER 2023-03-11 16:03 | Emergency (ER) | payer OTHER, SELFPAY ==
--- NOTE | 2023-03-11 16:26 | HMH.EDGENADL ---
Discharge Plan Disposition Patient Disposition: Home, Self-Care Condition: Good Prescriptions Prescriptions: New azithromycin 500 mg tablet 500 mg PO DAILY 5 Days Qty: 5 0RF Discontinued azithromycin 250 MG tablet 250 mg PO DIRECTED Qty: 6 0RF Rx Instructions: Take two (2) tablets on day #1, then one (1) tablet day #2 thru #5 ciprofloxacin-dexamethasone 7.5 ML bottle 4 drops EAR-LEFT BID 7 Days Qty: 7.5 0RF Rx Instructions: apply drops to left ear as directed cefdinir 300 MG capsule 300 mg PO BID Qty: 20 0RF ondansetron 4 MG tablet,disintegrating 4 mg PO Q6 PRN (Reason: Nausea) Qty: 12 0RF No Action buprenorphine-naloxone 8-2 mg tablet, sublingual 8 mg SUBLINGUAL DAILY 7 Days Qty: 14 pseudoephedrine HCl 30 MG tablet 30 mg PO Q6HP PRN (Reason: Congestion) Qty: 30 0RF methylprednisolone 4 MG tablets,dose pack 4 mg PO DIRECTED 6 Days Qty: 21 0RF Referrals Follow up/Referrals: Provider,Referral, MD [Primary Care Provider] - See instructions Clinical Impressions Clinical Impression: Acute streptococcal pharyngitis Instructions Patient Instructions: Strep Throat, DI for Strep Throat Discharge ED Provider: Pillo Waterman General Adult HPI General Chief complaint: Upper Respiratory Infection Stated complaint: sore throat, body aches Time Seen by Provider: 03/11/23 16:25 History of Present Illness HPI narrative: Patient presents for evaluation of sore throat, generalized myalgias, gradual in onset starting over the past 48 hours, constant, stable in course, associated symptoms include decreased p.o. intake however patient's been able to tolerate p.o. No urinary symptoms, no chest pain or palpitations. No productive cough, no globus sensation. No trismus. No hoarseness. No known sick contacts. No recent travel. Patient does have history of drug abuse per my review of patient's electronic medical record, however he and family member at bedside deny that he has any recent intravenous drug use, has been compliant with methadone, they do note patient has used methamphetamine within the past 48 hours. This was not injected. No pain elsewhere. Related Data Home Medications Medication Instructions Recorded Confirmed buprenorphine 8 mg-naloxone 2 mg 8 mg sublingual DAILY addiction 7 08/25/18 08/04/21 sublingual tablet days #14 tabs Previous Rx's Medication Instructions Recorded methylprednisolone 4 mg tablets in 4 mg PO DIRECTED 6 days #21 10/20/21 a dose pack packets pseudoephedrine HCl 30 mg tablet 30 mg PO Q6HP PRN Congestion #30 10/20/21 tabs azithromycin 500 mg tablet 500 mg PO DAILY 5 days #5 tabs 03/11/23 Allergies Allergy/AdvReac Type Severity Reaction Status Date / Time penicillin G [PENICILLIN G] Allergy Mild Verified 10/27/21 16:18 [facility] Disclaimer: The information contained in this section may have been updated after the patient was seen, as this information can be updated by other users. 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 Smoking Status: Never smoker alcohol intake: never substance use type: former substance user, heroin, opiates and other current occupational status: other Travel in the last 8 weeks: None housing: house number of children: 2 ROS Obtained: Yes Systems reviewed as appropriate & no additional complaints except as documented Physical Exam General General appearance: alert and in no apparent distress Head Head exam: atraumatic and normocephalic Eye Eye exam: Present normal appearance ENT ENT exam: Present TM's normal bilaterally and other (Oropharyngeal erythema and exudate, no tonsillar unilateral hypertrophy, uvula midline. No trismus, no submandibular tenderness.) Neck Neck exam: Present normal inspection Chest Chest inspection: Present normal inspection and symmetric chest wall rise Respiratory Respiratory exam: Present normal lung sounds bilaterally; Absent respiratory distress
[2023-03-11 16:33] VITALS: BP 102/61; PULSE 106; RESP 20; TEMP 37; O2SAT 99; BMI 20.9
[2023-03-11 16:42] LABS: Coronavirus 19, PCR Not Detected (NotDetected); Influenza A, PCR Not Detected (NotDetected); Influenza B, PCR Not Detected (NotDetected)
[2023-03-11 16:48] LABS: Strep Scrn Group A (Rapid) Positive (Negative)
--- NOTE | 2023-03-11 16:50 | PC.NURSE ---
Pt ambulatory to bathroom and urine sample collected
[2023-03-11 16:54] LABS: Microscopic, Urine URINE MICROSCOPIC (MICROSCOPIC)
[2023-03-11 16:56] LABS: Appearance,Urine CLEAR (Clear); Bilirubin,Urine Negative (Negative); Blood, Urine Negative (Negative); Color,Urine YELLOW (Yellow); Glucose,Urine (UA) Negative (Negative); Ketones,Urine TRACE (Negative); Leukocyte Esterase,Urine Negative (Negative); Nitrate,Urine Negative (Negative); Protein,Urine Negative (Negative); Specific Gravity, Urine 1.025 (1.005-1.030)
[2023-03-11 17:16] LABS: Squamous Epithelial Cell,Urine Occasional #/hpf (0-5); WBC,Urine Occasional #/hpf (0-3)
[2023-03-11 17:22] VITALS: BP 115/72; PULSE 90; RESP 18; TEMP 36.6; O2SAT 99
== END 2023-03-11 17:24 | disposition home or self-care (01) ==
PROVIDERS: Emergency Provider Emergency Medicine
DX: J02.0 Streptococcal pharyngitis (principal)
CPT/HCPCS: 81001; 87430; 87636; 99284

== ENCOUNTER 2023-08-28 14:36 | Emergency (ER) | payer OTHER, SELFPAY ==
--- NOTE | 2023-08-28 14:34 | ECG_ITS ---
APPROVED REPORT Exam: Resting ECG HR:91 bpm ECG Measurements Heart Rate [address] 168 P 57 QRSd 90 QRS 60 QT 337 T 56 QTc 386 Conclusion SINUS RHYTHM NONSPECIFIC T-WAVE ABNORMALITY BORDERLINE ECG UNCONFIRMED REPORT Electronically signed by : Jordin Kirkland MD 08/29/2023 20:01:27
[2023-08-28 14:36] VITALS: BP 144/88; PULSE 102; RESP 18; TEMP 36.9; O2SAT 100; BMI 21.7
--- NOTE | 2023-08-28 14:41 | XR_ITS ---
PROCEDURE INFORMATION: Exam: XR Chest Exam date and time: 08/28/2023 2:38 PM Age: 33 years old Clinical indication: Sternal or substernal pain; Additional info: Chest pain TECHNIQUE: Imaging protocol: Radiologic exam of the chest. Views: 2 views. COMPARISON: CR XR CHEST PORTABLE 01/24/2022 11:43 AM FINDINGS: Lungs: Lungs are well aerated without a focal area of consolidation. Pleural spaces: Unremarkable. No pleural effusion. No pneumothorax. Heart/Mediastinum: Unremarkable. No cardiomegaly. Bones/joints: Unremarkable. IMPRESSION: Lungs are well aerated without a focal area of consolidation.
--- NOTE | 2023-08-28 14:47 | PC.NURSE ---
PT TO XR
--- NOTE | 2023-08-28 14:49 | PC.NURSE ---
PT RETURNED FROM XR
[2023-08-28 14:51] LABS: Influenza A, PCR Not Detected (NotDetected); Influenza B, PCR Not Detected (NotDetected)
[2023-08-28 14:53] LABS: Basophils % 0.7 % (0.1-2.0); Eosinophils # 0.1 K/mm3 (0.0-0.4); Eosinophils % 3.5 % (0.1-12.0); Hematocrit 41.6 % (42.0-52.0); Lymphocytes # 2.2 K/mm3 (0.7-4.5); Mean Corpuscular HGB Conc 33.8 g/dL (31.8-35.4); Mean Corpuscular Hemoglobin 30.2 pg (27.0-31.2); Mean Corpuscular Volume 89.4 fl (80-94); Mean Platelet Volume 8.6 fl (7.4-10.4); Monocytes # 0.5 K/mm3 (0.1-1.0); Monocytes % 10.8 % (1.7-9.3); Neutrophils # 1.3 K/mm3 (1.8-7.8); Neutrophils % 32.1 % (37.0-80.0); Platelet Count 211 K/mm3 (142-424); Red Blood Count 4.65 M/mm3 (4.60-6.20); Red Cell Distribution Width 12.6 % (11.5-17.5); White Blood Count 4.2 K/mm3 (4.8-10.8)
[2023-08-28 14:56] LABS: Chloride 101 mmol/L (98-107); Potassium 3.6 mmoL/L (3.5-5.1); Sodium 139 mmol/L (136-145)
[2023-08-28 14:59] LABS: Alanine Aminotransferase 44 U/L (12-78); Albumin Level 4.4 g/dl (3.5-5.0); Albumin/Globulin Ratio 1.4 (1.1-1.8); Alkaline Phosphatase 74 U/L (38-126); Anion Gap 5.6 mEq/L (5-15); Aspartate Amino Transferase 41 U/L (17-59); Bilirubin,Total 0.3 mg/dl (0.2-1.3); Blood Urea Nitrogen 17 mg/dl (9-20); Carbon Dioxide 36 mmol/L (22.0-30.0); Creatinine Clearance Estimated 109 mL/min (50-200); Estimated Glomerular Filt Rate 87 ml/min (>60); GFR (African American) 105 ML/MIN (>60); Globulin 3.1 g/dL (1.3-3.2); Total Protein,Serum 7.5 g/dl (6.3-8.2)
[2023-08-28 15:00] VITALS: BP 123/75; PULSE 88; RESP 16; O2SAT 99
[2023-08-28 15:00] LABS: Calcium 8.8 mg/dl (8.4-10.2); Glucose 106 mg/dl (74-100)
--- NOTE | 2023-08-28 15:00 | HMH.EDCP ---
Discharge Plan Disposition Patient Disposition: Home, Self-Care Prescriptions Prescriptions: New omwiavddnzpulqw-tuvszgjnw-NW [Bromfed DM] 2-30-10 mg/5 mL syrup 5 ml PO Q6H PRN (Reason: cold symptoms) Qty: 118 0RF No Action buprenorphine-naloxone 8-2 mg tablet, sublingual 8 mg SUBLINGUAL DAILY 7 Days Qty: 14 pseudoephedrine HCl 30 MG tablet 30 mg PO Q6HP PRN (Reason: Congestion) Qty: 30 0RF methylprednisolone 4 MG tablets,dose pack 4 mg PO DIRECTED 6 Days Qty: 21 0RF azithromycin 500 mg tablet 500 mg PO DAILY 5 Days Qty: 5 0RF Referrals Follow up/Referrals: Provider,Referral, MD [Primary Care Provider] - See instructions Activity Restrictions/Add. Instructions Additional Instructions/Restrictions: At this time it was felt you are safe to be discharged home. If new or worsening symptoms please do not hesitate to return the emergency department. If symptoms persist please follow-up with your family doctor as you are able. It is okay to return to work on Tuesday as long as you are fever free. Please take your medications as prescribed. Clinical Impressions Clinical Impression: COVID-19, Chest pain Discharge ED Provider: Hima Guo [facility] General Chief Complaint: Chest Pain Stated Complaint: chest pain Time Seen by Provider: 08/28/23 14:51 Mode of Arrival: Ambulatory Source of Information: Patient Limitations: No Limitations Description of Symptoms (Recalled from ER Triage Doc. by RN): Patient complaint of chest pain for the past couple of days. Does admit to meth use within the past week. History of Present Illness HPI narrative: Patient is a 33-year-old male with no pertinent past medical history presents emergency department for evaluation of chest pain. Patient has had upper respiratory symptoms, shortness of breath, cough, rhinorrhea, global headache over the last few days. Positive COVID test at home. Yesterday he developed left-sided chest pain that is worse with deep inspiration intermittently radiating down his left arm. Due to persistent symptoms he presents here for continued evaluation. Related Data Home Medications Medication Instructions Recorded Confirmed buprenorphine 8 mg-naloxone 2 mg 8 mg sublingual DAILY addiction 7 08/25/18 08/04/21 sublingual tablet days #14 tabs Previous Rx's Medication Instructions Recorded methylprednisolone 4 mg tablets in 4 mg PO DIRECTED 6 days #21 10/20/21 a dose pack packets pseudoephedrine HCl 30 mg tablet 30 mg PO Q6HP PRN Congestion #30 10/20/21 tabs azithromycin 500 mg tablet 500 mg PO DAILY 5 days #5 tabs 03/11/23 jvbwygrcbozfjgt-zjewlcrqsnaoylz-ZG 5 ml PO Q6H PRN cold symptoms #118 08/28/23 2 mg-30 mg-10 mg/5 mL oral syrup mL (Bromfed DM) Allergies Allergy/AdvReac Type Severity Reaction Status Date / Time penicillin G [PENICILLIN G] Allergy Mild Verified 10/27/21 16:18 [facility] Disclaimer: The information contained in this section may have been updated after the patient was seen, as this information can be updated by other users. 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 Smoking Status: Unknown if ever smoked alcohol intake: never substance use type: former substance user, heroin, opiates and other current occupational status: other Travel in the last 8 weeks: None housing: house number of children: 2 ROS Obtained: Yes Systems reviewed as appropriate & no additional complaints except as documented Physical Exam General General appearance: alert and in no apparent distress Head Head exam: atraumatic and normocephalic Eye Eye exam: Present PERRL ENT ENT exam: Present mucous membranes moist Neck Neck exam: Present normal inspection Chest Chest inspection: Present normal inspection and symmetric chest wall rise Respiratory Respiratory exam: Present normal lung sounds bilaterally; Absent respiratory distress Cardiovascular Cardiovascular exam: Present regular rate and normal rhythm Abdominal Exam Abdominal exam: Present soft Extremities Exam Extremities exam: Present normal inspection Neurological Exam Neurological exam: Present alert Psychiatric Psychiatric exam: Present normal affect Skin Skin exam: Present warm and dry HEART Score HEART Score HEART Score assessment performed?: Yes History (anamnesis): Slightly suspicious ECG: Normal Age: <45 years Risk factors: No known risk factors Troponin: </= normal limit HEART Score: 0 Critical Care Critical Care Time Critical Care Time: No Medical Decision Making Nelson Inquiry Pt receiving controlled substance: No Vital Signs Vital Signs: 08/28/23 14:36 08/28/23 15:00 08/28/23 15:30 Temperature 98.4 F Temperature Source Oral Pulse Rate 88 84 Pulse Rate [Radial] 102 H Respiratory Rate 18 16 16 Blood Pressure 123/75 122/77 Blood Pressure [Right Arm] 144/88 H Blood Pressure Mean 91 84 Blood Pressure Mean [Right Arm] 106 Blood Pressure Source [Right Arm] Automatic Cuff Blood Pressure Position [Right Arm] Sitting 02 Sat by Pulse Oximetry 100 99 99 Oxygen Delivery Method Room Air 08/28/23 16:00 Temperature Temperature Source Pulse Rate 86 Pulse Rate [Radial] Respiratory Rate 16 Blood Pressure 113/73 Blood Pressure [Right Arm] Blood Pressure Mean 82 Blood Pressure Mean [Right Arm] Blood Pressure Source [Right Arm] Blood Pressure Position [Right Arm] 02 Sat by Pulse Oximetry 100 Oxygen Delivery Method Lab Data Labs: Lab Results 08/28/23 14:30: D-Dimer 0.34 08/28/23 14:37: WBC 4.2 L, RBC 4.65, Hgb 14.0 L, Hct 41.6 L, MCV 89.4, MCH 30.2, MCHC 33.8, RDW 12.6, Plt Count 211, MPV 8.6, Neut % (Auto) 32.1 L, Lymph % (Auto) 53.0 H, [place] % (Auto) 10.8 H, Eos % (Auto) 3.5, Baso % (Auto) 0.7, Neut # (Auto) 1.3 L, Lymph # (Auto) 2.2, [place] # (Auto) 0.5, Eos # (Auto) 0.1, Baso # (Auto) 0.0, Total Counted 100, Neutrophils % (Manual) 40 L, Lymphocytes % (Manual) 52 H, Monocytes % (Manual) 5, Eosinophils % (Manual) 3, Platelet Estimate Normal, RBC Morphology Normal, Sodium 139, Potassium 3.6, Chloride 101, Carbon Dioxide 36 H, Anion Gap 5.6, BUN 17, Creatinine 1.00, Estimated Creat Clear 109, Estimated GFR 87, Est GFR ( Amer) 105, Glucose 106 H, Calcium 8.8, Total Bilirubin 0.3, AST 41, ALT 44, Alkaline Phosphatase 74, Troponin I < 0.01, Total Protein 7.5, Albumin 4.4, Globulin 3.1, Albumin/Globulin Ratio 1.4 08/28/23 14:44: SARS-CoV-2 (PCR) Detected A, Influenza A Untype (PCR) Not detected, Influenza Type B (PCR) Not detected 08/28/23 14:37 08/28/23 14:37 Response Orders (Tests/Meds): ED MEDICATIONS Generic Name Dose Route Start Last Admin Trade Name Barryq PRN Reason Stop Dose Admin Sodium Chloride 10 ml 08/28/23 14:41 Sodium Chloride 0.9% 10ml Flush Syringe IV 09/27/23 14:40 NEEDED PRN Maintain IV Site Discontinued Medications Generic Name Dose Route Start Last Admin Trade Name Barryq PRN Reason Stop Dose Admin Acetaminophen 1,000 mg 08/28/23 14:57 08/28/23 15:18 Acetaminophen 500mg Tab PO 08/28/23 14:58 1,000 mg ONCE ONE Administration Lactated Ringer's 500 mls @ 999 mls/hr 08/28/23 15:24 08/28/23 15:32 Lactated Ringer's 500ml IV 08/28/23 15:54 999 mls/hr .Q31M ONE Administration Ketorolac Tromethamine 30 mg 08/28/23 14:57 08/28/23 15:18 Ketorolac 30mg/Ml Vial IV 08/28/23 14:58 30 mg ONCE ONE Administration ORDERS Category Date Time Status XR chest 2V Stat Exams 08/28/23 14:41 Completed Complete Blood Count Auto Diff Stat Lab 08/28/23 14:37 Completed Comprehensive Metabolic Panel Stat Lab 08/28/23 14:37 Completed D-Dimer Stat Lab 08/28/23 14:30 Completed Rapid PCR Covid and Flu A/B Stat Lab 08/28/23 14:44 Completed Trop I [Troponin I] Stat Lab 08/28/23 14:37 Completed Troponin I Q3H Lab 08/28/23 17:45 Ordered Troponin I Q3H Lab 08/28/23 20:45 Ordered ECG Data Tracing #1: ECG Narrative: Independently interpreted by me, rate is 91, rhythm is regular, axis is normal, no ST elevation in anatomical contiguous leads, QTc 386. MDM Narrative Medical Decision Narrative: In summary patient is a 33-year-old male with past medical history described above presents emergency department for evaluation of chest pain. Patient is hemodynamically stable nontoxic-appearing upon arrival, afebrile. Differential diagnosis includes COVID, ACS, perimyocarditis, embolism, among others. Workup will be conducted with hematologic labs, two-view chest x-ray, EKG, troponin, D-dimer initial inventions include Tylenol, Toradol. Initial workup reviewed by me, hematologic labs are nonactionable, D-dimer 0.34 ruling out pulmonary embolism, no SRIDHAR or critical electrolyte abnormality, initial troponin below detectable limit. Patient is COVID-19 positive. On repeat evaluation patient continued to have no significant respiratory distress on room air saturating in the high 90s. Patient is appropriate for discharge at this time and was given return precautions will be discharged with course of Bromfed.
[2023-08-28 15:03] LABS: MANUAL DIFFERENTIAL MANUAL DIFFERENTIAL (MANUAL DIFF)
[2023-08-28 15:15] LABS: Troponin I < 0.01 ng/ml (0.00-0.034)
[2023-08-28] MEDS: KETOROLAC 30MG/ML VIAL 30 MG IV (15:18)
[2023-08-28] MEDS: ACETAMINOPHEN 500MG TAB 1000 MG PO (15:18)
[2023-08-28 15:20] LABS: D-Dimer 0.34 ug/mL (0.0-0.5)
--- NOTE | 2023-08-28 15:22 | PC.NURSE ---
Rounded on pt. No need or complaints voiced. Call light within reach.
[2023-08-28 15:23] LABS: Coronavirus 19, PCR Detected (NotDetected)
[2023-08-28 15:30] VITALS: BP 122/77; PULSE 84; RESP 16; O2SAT 99
[2023-08-28] MEDS: RINGERS SOLUTION,LACTATED 500 ML 999 ML IV (15:32)
[2023-08-28 15:51] LABS: Eosinophils % 3 % (0-3); Lymphocytes % 52 % (10-50); Monocytes % 5 % (2-9); Neutrophils % 40 % (42-76); Platelet Estimate Normal; RBC Morphology Normal; Total Cells Counted 100
[2023-08-28 16:00] VITALS: BP 113/73; PULSE 86; RESP 16; O2SAT 100
[2023-08-28 16:30] VITALS: BP 122/80; PULSE 70; RESP 16; O2SAT 100
[2023-08-28 16:58] VITALS: BP 113/73; PULSE 86; RESP 16; TEMP 36.7; O2SAT 100
== END 2023-08-28 16:59 | disposition home or self-care (01) ==
PROVIDERS: Emergency Provider Emergency Medicine
DX: U07.1 COVID-19 (principal); R07.9 Chest pain, unspecified; M79.602 Pain in left arm; R51.9 Headache, unspecified; R05.9 Cough, unspecified; R06.02 Shortness of breath; F15.90 Other stimulant use, unspecified, uncomplicated
CPT/HCPCS: 71046; 80053; 84484; 85007; 85025; 85378; 87636; 93005; 96374; 99285

== ENCOUNTER 2023-11-29 16:33 | Emergency (ER) | payer OTHER, SELFPAY ==
[2023-11-29 16:45] VITALS: BP 137/89; PULSE 96; RESP 18; TEMP 36.6; O2SAT 100; BMI 21.7
--- NOTE | 2023-11-29 17:07 | ED_ITS ---
Discharge Plan Disposition Patient Disposition: Home, Self-Care Condition: Good Prescriptions Prescriptions: New azithromycin [Zithromax] 250 mg tablet 250 mg PO UD DOSE PK Qty: 6 0RF Rx Instructions: Take two (2) tablets today, then one (1) tablet days #2 thru #5 methylprednisolone 4 mg Tablets,Dose Pack 4 mg PO DIRECTED 6 Days Qty: 21 0RF Rx Instructions: Take 1 pack as directed for 6 days bijllxporrbieau-xyyybtnuc-VE [Bromfed DM] 2-30-10 mg/5 mL Syrup 5 ml PO Q6H PRN (Reason: Cough) Qty: 240 0RF No Action buprenorphine-naloxone 8-2 mg tablet, sublingual 8 mg SUBLINGUAL DAILY 7 Days Qty: 14 Referrals Follow up/Referrals: Danilo Yoder APRN [Primary Care Provider] - See instructions Activity Restrictions/Add. Instructions Additional Instructions/Restrictions: Drink plenty of fluids. Take tylenol or ibuprofen for pain or fever. Take the medications as directed. Follow up with your regular doctor. GO TO THE ER FOR ANY WORSENING SYMPTOMS Clinical Impressions Clinical Impression: Sinusitis, Low back pain, Otitis media Stand Alone Forms Stand Alone Forms: Work/School Release Instructions Patient Instructions: Sinusitis, DI for Sinusitis Discharge ED [place] Yonatan G[place] [facility] [place] Stated complaint: dizzy, THACKER, ear pressure, low back pain Time Seen by Provider: 11/29/23 17:07 History of Present Illness Provider Complaint: He states that for the past 2 days he has had body aches, low back pain, sinus congestion, and ear pressure. Related Data Home Medications Medication Instructions Recorded Confirmed buprenorphine 8 mg-naloxone 2 mg 8 mg sublingual DAILY addiction 7 08/25/18 11/29/23 sublingual tablet days #14 tabs Previous Rx's Medication Instructions Recorded azithromycin 250 mg tablet 250 mg PO UD DOSE PK #6 tabs 11/29/23 (Zithromax) amppcocwmxfhdnx-nygmerlflldlack-XW 5 ml PO Q6H PRN Cough #240 mL 11/29/23 2 mg-30 mg-10 mg/5 mL oral syrup (Bromfed DM) methylprednisolone 4 mg tablets in 4 mg PO DIRECTED 6 days #21 tabs 11/29/23 a dose pack Allergies Allergy/AdvReac Type Severity Reaction Status Date / Time penicillin G [PENICILLIN G] Allergy Mild Verified 11/29/23 17:07 [facility] Disclaimer: The information contained in this section may have been updated after the patient was seen, as this information can be updated by other users. 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 Smoking Status: Unknown if ever smoked alcohol intake: never substance use type: former substance user, heroin, opiates and other current occupational status: other Travel in the last 8 weeks: None housing: house number of children: 2 ROS Obtained: Yes All systems reviewed & no additional complaints except as documented Constitutional Constitutional: Denies chills, Reports fever(s) and Reports poor appetite Eyes Eyes: Denies eye discharge ENT Ears, Nose, Mouth, and Throat: Denies ear discharge, Reports otalgia, Denies hearing loss, Denies sinus pain and Reports sore throat Cardiovascular Cardiovascular: Denies chest pain and Denies dyspnea Respiratory Respiratory: Denies chest congestion, Reports cough and Denies dyspnea Gastrointestinal Gastrointestingal: Denies abdominal pain, diarrhea, nausea or vomiting Musculoskeletal Musculoskeletal: Denies arthralgias Integumentary/Breasts Skin/Breast: Denies rash Physical Exam General General appearance: alert and in no apparent distress Head Head exam: atraumatic, normocephalic and normal inspection Eye Eye exam: Present normal appearance; Absent PERRL or EOMI ENT ENT exam: Present mucous membranes moist and normal external ear exam Expanded ENT Exam TM/Canal exam: Bilateral TM: erythema, bulging and effusion Nose exam: Absent sinus tenderness Nasal speculum exam: Bilateral: normal Mouth exam: Present normal external inspection and other; Absent drooling Teeth exam: Present normal inspection Throat exam: Present tonsillar erythema and tonsillomegaly Neck Neck exam: Present normal inspection, full ROM and trachea midline; Absent tenderness, meningismus or lymphadenopathy Chest Chest inspection: Present normal inspection and symmetric chest wall rise; Absent tenderness Respiratory Respiratory exam: Present normal lung sounds bilaterally; Absent respiratory distress, wheezes or stridor Cardiovascular Cardiovascular exam: Present regular rate, normal rhythm and normal heart sounds; Absent tachycardia or irregular rhythm Abdominal Exam Abdominal exam: Present soft and normal bowel sounds; Absent distention, tenderness, guarding, rebound or rigidity Extremities Exam Extremities exam: Present normal inspection and normal capillary refill; Absent tenderness, joint swelling or calf tenderness Back Exam Back exam: Present normal inspection and full ROM; Absent tenderness, CVA tenderness (R) or CVA tenderness (L) Neurological Exam Neurological exam: Present alert, oriented X3, CN II-XII intact, normal gait and reflexes normal; Absent motor sensory deficit Psychiatric Psychiatric exam: Present normal affect and normal mood Skin Skin exam: Present warm, dry, intact and normal color Lymphatic Lymphatic Findings: no adenopathy Medical Decision Making Medical Records Medical records reviewed: No I reviewed the patient's medical records. Nelson Inquiry Pt receiving controlled substance: No
--- NOTE | 2023-11-29 17:19 | PC.NURSE ---
Sent rapid to lab via tube system
[2023-11-29 17:20] VITALS: BP 137/89; PULSE 96; RESP 18; TEMP 36.6; O2SAT 100
[2023-11-29 17:22] LABS: Coronavirus 19, PCR Not Detected (NotDetected); Influenza A, PCR Not Detected (NotDetected); Influenza B, PCR Not Detected (NotDetected)
== END 2023-11-29 17:20 | disposition home or self-care (01) ==
PROVIDERS: Emergency Provider Nurse Practitioner Family; PCP Nurse Practitioner Family
DX: J01.90 Acute sinusitis, unspecified (principal); H66.93 Otitis media, unspecified, bilateral; M54.50 Low back pain, unspecified
CPT/HCPCS: 87636; 99212; 99214; G0463

== ENCOUNTER 2023-12-07 18:32 | Emergency (ER) | payer OTHER, SELFPAY ==
[2023-12-07 18:48] VITALS: BP 126/79; PULSE 104; RESP 18; TEMP 36.5; O2SAT 98; BMI 20.9
--- NOTE | 2023-12-07 18:53 | EXP.UTC ---
Discharge Plan Disposition Patient Disposition: Home, Self-Care Condition: Good Prescriptions Prescriptions: New cyclobenzaprine 10 mg Tablet 10 mg PO BID PRN (Reason: Muscle Spasm) Qty: 20 0RF prednisone 20 mg tablet 20 mg PO BID 4 Days Qty: 8 0RF cefdinir 300 mg capsule 300 mg PO BID Qty: 20 0RF fluticasone propionate 50 mcg/actuation spray,suspension 1 spr intranasal DAILY 30 Days Qty: 120 0RF No Action buprenorphine-naloxone 8-2 mg tablet, sublingual 8 mg SUBLINGUAL DAILY 7 Days Qty: 14 Referrals Follow up/Referrals: Danilo Yoder APRN [Primary Care Provider] - See instructions Activity Restrictions/Add. Instructions Additional Instructions/Restrictions: Go home and rest. It would be best if you rested tomorrow too. No heavy lifting. No twisting. Take the oral medications as directed. The muscle relaxer (cyclobenzaprine--Flexeril) will make you drowsy, so don't drive or operate heavy machinery after taking it. Follow up with your regular doctor. GO TO THE ER FOR ANY WORSENING SYMPTOMS OR CONCERN, ESPECIALLY BOWEL OR BLADDER ISSUES, SADDLE AREA NUMBNESS, FEVER, ETC Clinical Impressions Clinical Impression: Otitis media, Low back pain Stand Alone Forms Stand Alone Forms: Work/School Release Instructions Patient Instructions: Middle Ear Infection, DI for Low Back Pain, Cyclobenzaprine Discharge ED Provider: Yonatan Gage [facility] General Stated complaint: Lower back pain,earache Mode of Arrival: Ambulatory Source of Information: Patient Limitations: No Limitations Time Seen by Provider: 12/07/23 18:53 Description of Symptoms (Recalled from Triage Doc. by RN): Pt's symptoms are he was seen last week for sinus pressure. He states he has lower back pain, spotty vision , THACKER, and left ear pain states its is popping , and productive cough. HEENT Symptoms (Recalled from RN notes): Yes Resp Symptoms (Recalled from RN notes): No Skin Symptoms (Recalled from RN notes): No MS Symptoms (Recalled from RN notes): No Functional Status (Recalled from RN notes): n/a Related Data Home Medications Medication Instructions Recorded Confirmed buprenorphine 8 mg-naloxone 2 mg 8 mg sublingual DAILY addiction 7 08/25/18 12/07/23 sublingual tablet days #14 tabs Previous Rx's Medication Instructions Recorded cefdinir 300 mg capsule 300 mg PO BID #20 caps 12/07/23 cyclobenzaprine 10 mg tablet 10 mg PO BID PRN Muscle Spasm #20 12/07/23 tabs fluticasone propionate 50 1 spr intranasal DAILY 30 days 12/07/23 mcg/actuation nasal #120 ea spray,suspension prednisone 20 mg tablet 20 mg PO BID 4 days #8 tabs 12/07/23 Allergies Allergy/AdvReac Type Severity Reaction Status Date / Time penicillin G [PENICILLIN G] Allergy Mild Verified 12/07/23 18:51 Worker's Comp Is this a Worker's Comp case?: No [facility] Disclaimer: The information contained in this section may have been updated after the patient was seen, as this information can be updated by other users. 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 Smoking Status: Unknown if ever smoked alcohol intake: never substance use type: former substance user, heroin, opiates and other current occupational status: other Travel in the last 8 weeks: None housing: house number of children: 2 ROS Obtained: Yes All systems reviewed & no additional complaints except as documented Constitutional Constitutional: Denies chills, Reports fever(s) and Reports poor appetite Eyes Eyes: Denies eye discharge ENT Ears, Nose, Mouth, and Throat: Denies ear discharge, Reports otalgia, Denies hearing loss, Denies sinus pain and Reports sore throat Cardiovascular Cardiovascular: Denies chest pain and Denies dyspnea Respiratory Respiratory: Denies chest congestion, Reports cough and Denies dyspnea Gastrointestinal Gastrointestingal: Denies abdominal pain, diarrhea, nausea or vomiting Musculoskeletal Musculoskeletal: Denies arthralgias Integumentary/Breasts Skin/Breast: Denies rash Physical Exam General General appearance: alert and in no apparent distress Head Head exam: atraumatic, normocephalic and normal inspection Eye Eye exam: Present normal appearance; Absent PERRL or EOMI ENT ENT exam: Present mucous membranes moist and normal external ear exam Expanded ENT Exam TM/Canal exam: Bilateral TM: erythema, bulging and effusion Nose exam: Absent sinus tenderness Nasal speculum exam: Bilateral: normal Mouth exam: Present normal external inspection and other; Absent drooling Teeth exam: Present normal inspection Throat exam: Present tonsillar erythema and tonsillomegaly Neck Neck exam: Present normal inspection, full ROM and trachea midline; Absent tenderness, meningismus or lymphadenopathy Chest Chest inspection: Present normal inspection and symmetric chest wall rise; Absent tenderness Respiratory Respiratory exam: Present normal lung sounds bilaterally; Absent respiratory distress, wheezes or stridor Cardiovascular Cardiovascular exam: Present regular rate, normal rhythm and normal heart sounds; Absent tachycardia or irregular rhythm Abdominal Exam Abdominal exam: Present soft and normal bowel sounds; Absent distention, tenderness, guarding, rebound or rigidity Extremities Exam Extremities exam: Present normal inspection and normal capillary refill; Absent tenderness, joint swelling or calf tenderness Back Exam Back exam: Present normal inspection and full ROM; Absent tenderness, CVA tenderness (R) or CVA tenderness (L) Neurological Exam Neurological exam: Present alert, oriented X3, CN II-XII intact, normal gait and reflexes normal; Absent motor sensory deficit Psychiatric Psychiatric exam: Present normal affect and normal mood Skin Skin exam: Present warm, dry, intact and normal color Lymphatic Lymphatic Findings: no adenopathy Medical Decision Making Medical Records Medical records reviewed: No I reviewed the patient's medical records. Nelson Inquiry Pt receiving controlled substance: No Vital Signs: 12/07/23 18:48 Temperature 97.7 F Temperature Source Oral Pulse Rate [Right Radial] 104 H Respiratory Rate 18 Blood Pressure [Right Arm] 126/79 Blood Pressure Mean [Right Arm] 94 Blood Pressure Source [Right Arm] Automatic Cuff Blood Pressure Position [Right Arm] Sitting 02 Sat by Pulse Oximetry 98 Oxygen Delivery Method Room Air
[2023-12-07 19:06] LABS: Apearance,Urine Clear (Clear); Bilirubin,Urine Negative (Negative); Blood, Urine Negative (Negative); Color,Urine Dark Yellow (Yellow); Glucose,Urine (UA) Negative (Negative); Ketones,Urine Negative (Negative); Protein,Urine Negative (Negative); UTC Leukocyte Esterase,Urine Negative (Negative); UTC Nitrate,Urine Negative (Negative); Urobilinogen,Urine 0.2 EU/dl (0.2)
[2023-12-07 19:22] VITALS: BP 126/79; PULSE 104; RESP 18; TEMP 36.5; O2SAT 98
== END 2023-12-07 19:23 | disposition home or self-care (01) ==
PROVIDERS: Emergency Provider Nurse Practitioner Family; PCP Nurse Practitioner Family
DX: H66.92 Otitis media, unspecified, left ear (principal); M54.50 Low back pain, unspecified; R50.9 Fever, unspecified
CPT/HCPCS: 81003; 99212; 99214; G0463

== ENCOUNTER 2023-12-14 18:11 | Emergency (ER) | payer OTHER, SELFPAY ==
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
[2023-12-14 18:27] VITALS: BMI 21.7
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
[2023-12-14 18:41] VITALS: BP 144/88; PULSE 92; RESP 21; TEMP 36.9; O2SAT 98
[2023-12-14 18:44] VITALS: BP 144/88; PULSE 84; O2SAT 96
[2023-12-14 19:02] LABS: Basophils % 0.3 % (0.1-2.0); Eosinophils % 0.1 % (0.1-12.0); Hemoglobin 14.3 g/dL (14.1-18.0); Lymphocytes # 2.4 K/mm3 (0.7-4.5); Lymphocytes % 18.2 % (10-50); Mean Corpuscular HGB Conc 33.2 g/dL (31.8-35.4); Mean Corpuscular Hemoglobin 29.4 pg (27.0-31.2); Mean Corpuscular Volume 88.5 fl (80-94); Mean Platelet Volume 8.3 fl (7.4-10.4); Monocytes # 0.4 K/mm3 (0.1-1.0); Monocytes % 2.6 % (1.7-9.3); Neutrophils # 10.5 K/mm3 (1.8-7.8); Neutrophils % 78.8 % (37.0-80.0); Platelet Count 298 K/mm3 (142-424); Red Blood Count 4.85 M/mm3 (4.60-6.20); Red Cell Distribution Width 13.1 % (11.5-17.5); White Blood Count 13.3 K/mm3 (4.8-10.8)
[2023-12-14 19:14] LABS: Chloride 99 mmol/L (98-107); Potassium 3.9 mmoL/L (3.5-5.1); Sodium 137 mmol/L (136-145)
[2023-12-14 19:17] LABS: Alanine Aminotransferase 43 U/L (12-78); Albumin Level 4.8 g/dl (3.5-5.0); Albumin/Globulin Ratio 1.3 (1.1-1.8); Alkaline Phosphatase 63 U/L (38-126); Anion Gap 13.9 mEq/L (5-15); Aspartate Amino Transferase 54 U/L (17-59); Bilirubin,Total 0.7 mg/dl (0.2-1.3); Blood Urea Nitrogen 24 mg/dl (9-20); Calcium 9.5 mg/dl (8.4-10.2); Carbon Dioxide 28 mmol/L (22.0-30.0); Creatinine Clearance Estimated 109 mL/min (50-200); Estimated Glomerular Filt Rate 87 ml/min (>60); GFR (African American) 105 ML/MIN (>60); Globulin 3.6 g/dL (1.3-3.2); Glucose 219 mg/dl (74-100); Total Protein,Serum 8.4 g/dl (6.3-8.2)
[2023-12-14] MEDS: 0.9 % SODIUM CHLORIDE 50 ML VIAL IV (19:20)
[2023-12-14] MEDS: IOPAMIDOL-370 (76%);100ML BOTTLE 160 ML IV (19:20)
[2023-12-14] MEDS: SODIUM CHLORIDE 0.9% 10ML SYR (RAD ONLY) 10 ML IV (19:20)
--- NOTE | 2023-12-14 19:52 | PC.NURSE ---
I rounded on the pt, he is resting with his eyes closed at this time.
[2023-12-14] MEDS: TET/DIPHTH/PERT-ADULT 0.5ML SYRINGE 0.5 ML IM (20:52)
[2023-12-14] MEDS: cephALEXin 500MG CAPSULE 500 MG PO (20:53)
[2023-12-14 21:11] VITALS: BP 137/86; PULSE 89; RESP 16; TEMP 36.9
== END 2023-12-14 21:11 | disposition home or self-care (01) ==
PROVIDERS: Emergency Provider Emergency Medicine
DX: S42.114A Nondisplaced fracture of body of scapula, right shoulder, initial encounter for closed fracture (principal); S00.83XA Contusion of other part of head, initial encounter; V86.59XA Driver of other special all-terrain or other off-road motor vehicle injured in nontraffic accident, initial encounter; Z23 Encounter for immunization
CPT/HCPCS: 70450; 70486; 70496; 70498; 71045; 71275; 72125; 72128; 72131; 72170; 72192; 73030; 73060; 74174; 80053; 85025; 90471; 90715; 99285; Q9967

== ENCOUNTER 2024-01-04 13:00 | Outpatient (CLI) | payer OTHER, SELFPAY ==
--- NOTE | 2024-01-04 13:05 | XR_ITS ---
FINAL REPORT CLINICAL HISTORY: right shoulder fx..pain COMPARISON: 12/14/2023 FINDINGS: RIGHT SHOULDER 3 views were obtained. There is a fracture of the infraspinous portion of the scapula with overlap of the fracture fragments. Overlapping of the fragments appear worse compared to the prior exam. There is a small amount of callus formation. IMPRESSION: Fracture of the infraspinous portion of the scapula with worsening overlap of the fracture fragments compared to the prior exam. Small amount of callus formation. Reviewed, Interpreted and Dictated by Joes Luis Herrera III, MD Transcribed by Maritza Daneille Authenticated and [facility]
== END 2024-01-04 23:59 | disposition home or self-care (01) ==
LOC: RAD 13:01
PROVIDERS: PCP Family Medicine; Visit Provider Physician Assistant
DX: M25.511 Pain in right shoulder (principal); S42.101A Fracture of unspecified part of scapula, right shoulder, initial encounter for closed fracture
CPT/HCPCS: 73030

== ENCOUNTER 2024-01-12 14:33 | Outpatient (CLI) | payer OTHER, SELFPAY ==
--- NOTE | 2024-01-12 14:35 | CT_ITS ---
FINAL REPORT TECHNIQUE: Thin section axial CT images with coronal and sagittal reformats were performed of the right shoulder. This study was performed with techniques to keep radiation doses as low as reasonably achievable (ALARA). Individualized dose reduction techniques using automated exposure control or adjustment of mA and/or kV according to the patient's size were employed. CLINICAL HISTORY: Right shoulder fx COMPARISON: CTA chest 12/14/2023 FINDINGS: Again noted is a fracture of the infraspinous portion of the right scapula. There is up to 13 mm of distraction, previously measured 3 mm. There is increasing overlap of the fracture fragments. Callus formation is noted at the fracture site. There is a separate fracture line extending inferiorly through the scapula. There is no evidence of dislocation. IMPRESSION: Interval healing of scapular fracture with worsening distraction and worsening overlap compared to the prior study. Reviewed, Interpreted and Dictated by Jose Luis Herrera III, MD Transcribed by Katelin Damon Authenticated and [facility]
== END 2024-01-12 23:59 | disposition home or self-care (01) ==
LOC: RAD 14:33
PROVIDERS: PCP Nurse Practitioner Family; Visit Provider Physician Assistant
DX: M25.511 Pain in right shoulder (principal); S42.191A Fracture of other part of scapula, right shoulder, initial encounter for closed fracture
CPT/HCPCS: 73200

== ENCOUNTER 2024-02-14 14:38 | Outpatient (CLI) | payer OTHER, SELFPAY ==
--- NOTE | 2024-02-14 14:40 | XR_ITS ---
FINAL REPORT CLINICAL HISTORY: rt scapula fx FINDINGS: Right scapula Two views were obtained. Again identified is an infraspinatus fracture of the scapula. The bony alignment is normal. There is callus formation at the fracture site since the prior. No new bony abnormality is identified. IMPRESSION: Fracture as above. Reviewed, Interpreted and Dictated by Jose Luis Herrera III, MD Transcribed by Mallory Matthews Authenticated and [facility]
--- NOTE | 2024-02-14 14:40 | XR_ITS ---
FINAL REPORT CLINICAL HISTORY: rt shoulder pain COMPARISON: 01/04/2024 FINDINGS: Right shoulder Three views were obtained. Again identified is an infraspinatus fracture of the scapula. The bony alignment is normal. There is callus formation at the fracture site since the prior. No new bony abnormality is identified. IMPRESSION: Fracture as above. Reviewed, Interpreted and Dictated by Jose Luis Herrera III, MD Transcribed by Mallory Matthews Authenticated and [facility]
== END 2024-02-14 23:59 | disposition home or self-care (01) ==
LOC: RAD 14:39
PROVIDERS: PCP Nurse Practitioner Family; Visit Provider Orthopaedic Surgery
DX: M25.511 Pain in right shoulder (principal); S42.111D Displaced fracture of body of scapula, right shoulder, subsequent encounter for fracture with routine healing
CPT/HCPCS: 73010; 73030

== ENCOUNTER 2024-03-06 13:05 | Outpatient (CLI) | payer OTHER, SELFPAY ==
--- NOTE | 2024-03-06 13:09 | XR_ITS ---
FINAL REPORT CLINICAL HISTORY: right shoulder fx COMPARISON: 02/14/2024 FINDINGS: Right shoulder Three views were obtained. Again identified is an infraspinatus scapular fracture with overlapping of fracture fragments. There is probably some callus formation at the fracture site. No other fracture or dislocation is identified. IMPRESSION: Fracture as above. Reviewed, Interpreted and Dictated by Jose Luis Herrera III, MD Transcribed by Mallory Matthews Authenticated and [facility]
== END 2024-03-06 23:59 | disposition home or self-care (01) ==
LOC: RAD 13:07
PROVIDERS: PCP Nurse Practitioner Family; Visit Provider Orthopaedic Surgery
DX: S42.111D Displaced fracture of body of scapula, right shoulder, subsequent encounter for fracture with routine healing (principal)
CPT/HCPCS: 73030

== ENCOUNTER 2024-03-10 15:43 | Emergency (ER) | payer OTHER, SELFPAY ==
[2024-03-10 16:00] VITALS: BP 119/82; PULSE 76; RESP 19; TEMP 36.9; O2SAT 98; BMI 20.9
--- NOTE | 2024-03-10 16:10 | XR_ITS ---
PROCEDURE INFORMATION: Exam: XR Lumbosacral Spine Exam date and time: 03/10/2024 4:15 PM Age: 34 years old Clinical indication: Low back pain TECHNIQUE: Imaging protocol: Radiologic exam of the lumbosacral spine. Views: 2 or 3 views. COMPARISON: CT LUMBAR SPINE WO CON 12/14/2023 6:59 PM FINDINGS: Bones/joints: There is no evidence of acute fracture.There is no evidence of malalignment or dislocation. Intervertebral disc spaces are maintained. Soft tissues: Unremarkable. IMPRESSION: 1. There is no evidence of acute fracture.There is no evidence of malalignment or dislocation. 2. Intervertebral disc spaces are maintained.
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
[2024-03-10 17:30] VITALS: BP 119/82; PULSE 76; RESP 19; TEMP 36.9; O2SAT 98
== END 2024-03-10 17:33 | disposition home or self-care (01) ==
PROVIDERS: Emergency Provider Nurse Practitioner Family; PCP Nurse Practitioner Family
DX: M54.50 Low back pain, unspecified (principal)
CPT/HCPCS: 72100; 99212; 99214; G0463

== ENCOUNTER 2024-05-09 18:43 | Emergency (ER) | payer OTHER, SELFPAY ==
[2024-05-09 19:57] VITALS: BP 0/0; PULSE 0; RESP 0; TEMP -17.7; TEMP 0
== END 2024-05-09 19:57 | disposition home or self-care (01) ==
LOC: UTC 18:47
PROVIDERS: Emergency Provider Nurse Practitioner Family; PCP Nurse Practitioner Family
DX: Z53.21 Procedure and treatment not carried out due to patient leaving prior to being seen by health care provider (principal)

== ENCOUNTER 2024-08-09 10:48 | Outpatient (CLI) | payer OTHER, SELFPAY ==
--- NOTE | 2024-08-09 10:51 | XR_ITS ---
FINAL REPORT CLINICAL HISTORY: lt hip pain 3-4 months. Pain in back of left hip and groin and radiates down left leg. COMPARISON: None FINDINGS: LEFT HIP Two views of the left hip and an AP pelvis view were obtained. There is no acute fracture or dislocation. 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 The joint spaces are well-preserved. There is no acute soft tissue abnormality. 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 Reviewed, Interpreted and Dictated by Monroe Moreira MD Transcribed by Kamilla Cline Authenticated and . [facility]
== END 2024-08-09 23:59 | disposition home or self-care (01) ==
PROVIDERS: PCP Nurse Practitioner Family; Visit Provider Physician Assistant
DX: M25.552 Pain in left hip (principal)
CPT/HCPCS: 73502

== ENCOUNTER 2025-03-08 17:40 | Outpatient (CLI) | payer OTHER, SELFPAY ==
--- OUTSIDE RECORDS SUMMARY | 2025-03-08 17:43 | XMS_ITS | Clinical Summary ---
Author Organization [facility] Address [address] [place] [phone] Phone Care Team Providers Care Pool Attendant Name Role Phone Aishwarya Nayak APRN Primary Care Physic robbie Conditions or Problems Problem Name Problem Code Onset Date Status Entry Date Provider Comment Standard Description Annotate Body mass index (BMI) 23.0-23.9; adult Z68.23 (ICD-10-CM ) 09/21 Active 09/21 Malumeenu Moseley APRN Body mass index [BMI] 23.0-23.9, adult Body mass index (BMI) 22.0-22.9; adult Z68.22 (ICD-10-CM ) 08/30 Correction 08/30 Malu Zerjosesen [facility] Body mass index [BMI] 22.0-22.9, adult Body mass index (BMI) 22.0-22.9; adult Z68.22 (ICD-10-CM ) 08/30 Removed 08/30 Malu Zerjosesen [facility] Body mass index [BMI] 22.0-22.9, adult Body mass index (BMI) 23.0-23.9; adult Z68.23 (ICD-10-CM ) 08/16 Correction 08/17 Malu Zerhusen [facility] Body mass index [BMI] 23.0-23.9, adult Body mass index (BMI) 23.0-23.9; adult Z68.23 (ICD-10-CM ) 08/16 Removed 08/17 Malu Zerhusen [facility] Body mass index [BMI] 23.0-23.9, adult Body mass index (BMI) 23.0-23.9; adult Z68.23 (ICD-10-CM ) 08/09 Correction 08/10 Malu Lorelei [facility] Body mass index [BMI] 23.0-23.9, adult Major depression 510936272 (SNOMED CT) 08/16 Active 08/17 Malu Seymoursen [facility] Major depressive disorder Anxiety depression 488652235 (SNOMED CT) 07/11 Inactive 07/11 Malu Seymoursen [facility] Mixed anxiety and depressive disorder Body mass index (BMI) 23.0-23.9; adult Z68.23 (ICD-10-CM ) 08/09 Removed 08/10 Malu Seymoursen [facility] Body mass index [BMI] 23.0-23.9, adult Body mass index (BMI) 23.0-23.9; adult Z68.23 (ICD-10-CM ) 08/01 Correction 08/01 Malu Seymoursen [facility] Body mass index [BMI] 23.0-23.9, adult Body mass index (BMI) 23.0-23.9; adult Z68.23 (ICD-10-CM ) 08/01 Removed 08/01 Malu Lorelei [facility] Body mass index [BMI] 23.0-23.9, adult Body mass index (BMI) 23.0-23.9; adult Z68.23 (ICD-10-CM ) 07/30 Correction 07/30 Malu Lorelei NUNEZN Body mass index [BMI] 23.0-23.9, adult Intermittent explosive disorder 09472779 (SNOMED CT) 08/01 Active 08/01 Malu Seymoursen [facility] Intermittent explosive disorder Polysubstanc e abuse 314264261 (SNOMED CT) 08/01 Active 08/01 Malu Zerjosesen [facility] Harmful pattern of use of multiple substances Body mass index (BMI) 23.0-23.9; adult Z68.23 (ICD-10-CM ) 07/30 Removed 07/30 Laura Dong [facility] BCADM Body mass index [BMI] 23.0-23.9, adult Body mass index (BMI) 23.0-23.9; adult Z68.23 (ICD-10-CM ) 07/11 Correction 07/11 Laura Dong [facility] BCADM Body mass index [BMI] 23.0-23.9, adult Multiple benign nevi 039299155 (SNOMED CT) 07/30 Active 07/30 Laura Dong [facility] BCADM Multiple benign melanocytic nevi Folliculitis 00982252 (SNOMED CT) 07/30 Active 07/30 Laura Dong [facility] BCADM Folliculitis Anxiety depression 105533853 (SNOMED CT) 07/11 Removed 07/11 Tiffany Jerel [facility] Mixed anxiety and depressive disorder Body mass index (BMI) 23.0-23.9; adult Z68.23 (ICD-10-CM ) 07/11 Removed 07/11 Tiffany Beltrán [facility] Body mass index [BMI] 23.0-23.9, adult Body mass index (BMI) 22.0-22.9; adult Z68.22 (ICD-10-CM ) 07/07 Correction 07/07 Tiffany Beltrán APRN Body mass index [BMI] 22.0-22.9, adult Allergic rhinitis 23554074 (SNOMED CT) 07/11 Active 07/11 Tiffany Beltrán APRN Allergic rhinitis Scabies 731928193 (SNOMED CT) 07/11 Inactive 07/11 Tiffany Jerel [facility] Infestation by Sarcoptes scabiei alana hominis Body mass index (BMI) 22.0-22.9; adult Z68.22 (ICD-10-CM ) 07/07 Removed 07/07 Aishwarya Nayak APRN Body mass index [BMI] 22.0-22.9, adult URI ACUTE 30757935 (SNOMED CT) 07/07 Inactive 07/07 Aishwarya Nayak APRN Acute upper respiratory infection Medications Medication Instructions Start Date Stop Date Generic Name NDC Provider CLONIDINE HCL 0.1 MG TABS one and a half tabs at bedtime. 3 CLONIDINE HCL [id number] Malu Moseley [facility] BUPROPION HCL ER (SR) 100 MG [id number] one in am and one in afternoon. 1 BUPROPION HCL [id number] Malu Moseely APRN CLONIDINE HCL 0.1 MG TABS one and a half tabs at bedtime. 3 CLONIDINE HCL [id number] Malu Moseley [facility] BUPROPION HCL ER (SR) 100 MG [id number] one in am and one in afternoon. 1 BUPROPION HCL [id number] Malu Moseley [facility] VENLAFAXINE HCL ER 150 MG [id number] TAKE 1TABLET BY MOUTH 1 TIME A Day in am. 7 VENLAFAXINE HCL [id number] Malu Moseley [facility] VENLAFAXINE HCL ER 75 MG [id number] After completing the 37.5mg dose TAKE 1 CAPSULE BY MOUTH ONCE A DAY in the morning. 3 VENLAFAXINE HCL [id number] Malu Moseley APRN VENLAFAXINE HCL ER 37.5 MG [id number] Stop the Wellbutrin and start one a day in the morning for 7 days then increase to the 75mg dose. 3 VENLAFAXINE HCL [id number] Malu Moseley [facility] VENLAFAXINE HCL ER 150 MG [id number] TAKE 1TABLET BY MOUTH 1 TIME A Day in am. 7 VENLAFAXINE HCL [id number] Malu Moseley APRN CLONIDINE HCL 0.1 MG TABS decrease to one and a half tabs at bedtime. 3 CLONIDINE HCL [id number] Malu Moseley APRN CLONIDINE HCL 0.1 MG TABS Stop the Risperdal and TAKE 1 tablet at bedtime. 6 CLONIDINE HCL [id number] Mlau Moseley APRN BUPROPION HCL ER (SR) 100 MG [id number] two in am 6 BUPROPION HCL [id number] Malu Moseley [facility] VENLAFAXINE HCL ER 75 MG [id number] After completing the 37.5mg dose TAKE 1 CAPSULE BY MOUTH ONCE A DAY in the morning. 3 VENLAFAXINE HCL [id number] Malu Ahujasen [facility] VENLAFAXINE HCL ER 37.5 MG [id number] Stop the Wellbutrin and start one a day in the morning for 7 days then increase to the 75mg dose. 3 VENLAFAXINE HCL [id number] Malu Zerhusen [facility] CLONIDINE HCL 0.1 MG TABS Increase to two at bedtime. 3 CLONIDINE HCL [id number] Malu Seymoursen [facility] BUPROPION HCL ER (SR) 100 MG [id number] two in am 6 BUPROPION HCL [id number] Malu Zerhusen [facility] CLONIDINE HCL 0.1 MG TABS Stop the Risperdal and TAKE 1 tablet at bedtime. 6 CLONIDINE HCL [id number] Malu Seymoursen [facility] WELLBUTRIN SR 100 MG [id number] one by mouth in the morning. STOP IF SEVERE AGITATION IS NOTED. 9 BUPROPION HCL [id number] Malu Zerhusen [facility] RISPERDAL 0.5 MG TABS TAKE 1 TABLET BY MOUTH EVERY NIGHT 9 RISPERIDONE [id number] Malu Seymoursen [facility] BACTRIM DS 800-160 MG TABS TAKE 1 TABLET BY MOUTH 2 TIMES A DAY FOR 10 DAYS 7 SULFAMETHOXAZO LE-TRIMETHOPRI M [id number] Eden Crespo LPN RISPERDAL 0.5 MG TABS TAKE 1 TABLET BY MOUTH EVERY NIGHT 9 RISPERIDONE [id number] Malu Jacqueshusen [facility] WELLBUTRIN SR 100 MG [id number] one by mouth in the morning. STOP IF SEVERE AGITATION IS NOTED. 9 BUPROPION HCL [id number] Malu Zerhusen [facility] BACTRIM DS 800-160 MG TABS TAKE 1 TABLET BY MOUTH 2 TIMES A DAY FOR 10 DAYS 7 SULFAMETHOXAZO LE-TRIMETHOPRI M [id number] Laura Keagle [facility] BCADM FLUTICASONE PROPIONATE 50 MCG/ACT SUSP USE 2 SPRAYS INTO EACH NOSTRIL ONCE A DAY 4 FLUTICASONE PROPIONATE [id number] Laura Keagle [facility] BCADM PERMETHRIN 5 % CREA APPLY TO BODY THEN RINSE AFTER 8-12 HOURS. REPEAT IN 1 WEEK NEEDED 8 PERMETHRIN [id number] Tiffany Beltrán [facility] FLUTICASONE PROPIONATE 50 MCG/ACT SUSP USE 2 SPRAYS INTO EACH NOSTRIL ONCE A DAY 4 FLUTICASONE PROPIONATE [id number] Tiffany Beltrán [facility] Medications Administered No information available. 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 Results Date Name Value Unit Range Flag Description Office Visit: new pt, cough, congestion tn/bl Rm 9 RAPID STREP negative Streptoc occus pyogenes DNA [Presence] in Throat by EMMY with non-probe detection Plan of Care Type Date Detail [facility]erral [facility], [address] [place] [address], [phone] Referral excluded fr om report: Referral [facility] Psych[facility], [address] [place] [address], [phone] Pending order Strep Screen [id number] 80 Patient education Medications Procedures Code Procedure Name Date Entry Date [id number] Medication Reconciliation CPT-3074F Most recent systolic blood pressure <130 mm Hg CPT-3078F Most recent diastoli c blood pressure <80 mm Hg CPT-3074F Most recent systolic blood pressure <130 mm Hg CPT-3078F Most recent diastoli c blood pressure <80 mm Hg CPT-3074F Most recent systolic blood pressure <130 mm Hg CPT-3078F Most recent diastoli c blood pressure <80 mm Hg CPT-3074F Most recent systolic blood pressure <130 mm Hg CPT-3078F Most recent diastoli c blood pressure <80 mm Hg [id number] Medication Reconciliation CPT-10431() Psych Dx Eval WITH E&M -MD/[facility] Only() CPT-3074F Most recent systolic blood pressure <130 mm Hg CPT-3078F Most recent diastoli c blood pressure <[address] [facility] [id number] Medication Reconciliation CPT-3074F Most recent systolic blood pressure <130 mm Hg CPT-3079F Most recent diastoli c blood pressure 80-89 mm Hg CPT-3074F Most recent systolic blood pressure <130 mm Hg CPT-3078F Most recent diastoli c blood pressure <80 mm Hg SCT-[id number] Medication Reconciliation [facility] 07/11 [id number] Medication Reconciliation CPT-3075F Most recent systolic blood pressure 130-139 mm Hg CPT-3078F Most recent diastoli c blood pressure <80 mm Hg CPT-88869 Strep Screen 15459 4 Vital Signs Date Name Value Unit Description BMI (Body Mass Index) 23.18 kg/m2 Bod y Mass Index (Ratio) BP Diastolic 76 mm[Hg] blood pressu re, diastolic BP Systolic 123 mm[Hg] blood pressur e, systolic Heart Rate 73 /min pulse rate Weight Measured 161 [lb_av] weight E& M Weight Measured 161 [lb_av] weight E& M Body Temperature 98.0 [degF] temperat ure E&M Body Temperature 36.67 Risa temperat ure in centigrade E&M BSA (Body Surface Area) 1.91 b chandrakant surface area Height 70 [in_us] height E&M Height 177.8 cm height in cent imeters E&M Weight Measured 73.86 kg weight in kilograms E&M Immunizations Vaccine Administration Date Standard Description CVX Co de Dose PRIVATE Fluzone Quadrivalent Prefilled Syringe 0.5 ML for 36 mos + PRIVATE Fluzone Quadrivalent Prefilled Syringe 0.5 ML for 36 mos + 150 Unknown Not given: Patient d ecision Advance Directives No information available.
--- OUTSIDE RECORDS SUMMARY | 2025-03-08 17:43 | XMS_ITS | Clinical Summary ---
Author Organization [facility] Address [address] [place] [address] Phone Care Team Providers Care Bss Solution Architect Name Role Phone Jordin Madison Primary Care Provider Allergies Active Allergy Reactions Criticality Noted Date Comments Penicillins 10/14/2016 Medications * This document contains information received from the source organization and may not represent a complete record from that organization. buprenorphine-na loxone (SUBOXONE) 8-2 mg SL Tablet, Sublingual Place under the tongue daily. Active acetaminophen 325 mg Oral Tab Take by mouth every 4 hours as needed for Pain. Active ibuprofen (ADVIL;MOTRIN) 400 mg Oral Tablet Take by mouth every 8 hours as needed for Pain. Active loratadine (CLARITIN) 10 mg Oral Tablet Take 10 mg by mouth daily. Active venlafaxine (EFFEXOR) 25 mg Oral Tablet Take 150 mg by mouth daily. Active cloNIDine HCl (CATAPRES) 0.1 mg Oral Tablet Take by mouth every 8 hours. Active Surgical History Surgery Date Site/Laterality Comments ORTHOPEDIC SURGERY ELBOW SURGERY two metal plates 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 Tobacco Use Types Packs/Day Years Used Date Smoking Tobacco: Never Smokeless Tobacco: Current Chew Alcohol Use Standard Drinks/Week Comments No 0 (1 standard drink = 0.6 oz pur e alcohol) Sex and Gender Information Value Date Recorded Sex Assigned at Not on file Legal Sex Male 10:42 AM EDT Gender Identity Not on file Sexual Orientation Not on file Obstetrics History Last Filed Vital Signs Vital Sign Reading Time Taken Comments Blood Pressure 117/79 09/14/2017 2:02 PM EDT Pulse 75 09/14/2017 3:02 PM EDT Temperature 36.7 C (98 F) 09/14/2017 1:07 PM EDT Respiratory Rate 17 09/14/2017 3:02 PM EDT Oxygen Saturation 100% 09/14/2017 3:02 PM EDT Inhaled Oxygen Concentration - - Weight 72.6 kg (160 lb) 09/14/2017 2:02 PM EDT Height 182.9 cm (6') 09/14/2017 1:07 PM EDT Body Mass Index 21.7 09/14/2017 1:07 PM EDT Plan of Treatment Health Maintenance Due Date Last Done Comments Annual Wellness Exam 1994 DTaP/TDaP/Td (1 - Tdap) 2010 Hepatitis B Vaccine (1 of 3 - 19+ 3-dose series) 2010 COVID-19 Vaccine ( - 2023-2 5 season) 2024 Influenza Vaccine (#1) 2025 Meningococcal B Vaccine Aged Out No l onger eligible based on patient's age to complete this topic Pneumococcal Vaccine 0-49 Aged Out No longer eligible based on patient's age to complete this topic Care Teams Bss Solution Architect Relationship Specialty Start Date End Date Jordin Madison [address] [place] [id number] PCP - General Family Medicine 10/14/16
--- NOTE | 2025-03-08 18:03 | XR_ITS ---
PROCEDURE INFORMATION: Exam: XR Cervical Spine Exam date and time: 03/08/2025 5:55 PM Age: 35 years old Clinical indication: Cervicalgia and neck pain TECHNIQUE: Imaging protocol: Radiologic exam of the cervical spine. Views: 2 or 3 views. COMPARISON: CT CERVICAL SPINE WO CON 12/14/2023 6:54 PM FINDINGS: Bones/joints: Normal. No acute fracture. Normal alignment. Soft tissues: Unremarkable. IMPRESSION: No acute findings.
== END 2025-03-08 23:59 | disposition home or self-care (01) ==
LOC: RAD 17:42
PROVIDERS: PCP Nurse Practitioner Family; Visit Provider Student in an Organized Health Care Education/Training Program
DX: M54.2 Cervicalgia (principal)
CPT/HCPCS: 72040

== ENCOUNTER 2025-05-27 12:55 | Outpatient (RCR) | payer OTHER, SELFPAY | END 2025-05-27 23:59 | disposition home or self-care (01) | LOC: PT 12:55 | PROVIDERS: PCP Nurse Practitioner Family; Visit Provider Orthopaedic Surgery | DX: M54.50 Low back pain, unspecified (principal); M79.605 Pain in left leg; Z98.890 Other specified postprocedural states | CPT/HCPCS: 97161 ==

== ENCOUNTER 2025-06-06 17:00 | Outpatient (RCR) | payer OTHER, SELFPAY | END 2025-06-06 23:59 | disposition home or self-care (01) | LOC: PT 17:00 | PROVIDERS: PCP Nurse Practitioner Family; Visit Provider Orthopaedic Surgery | DX: Z98.890 Other specified postprocedural states (principal) | CPT/HCPCS: 97110 ==

== ENCOUNTER 2025-06-24 18:01 | Emergency (ER) | payer OTHER, SELFPAY ==
[2025-06-24] VITALS (10 sets, daily range): BP systolic 123–138; BP diastolic 65–95; PULSE 62–106; RESP 16–20; TEMP 36.8; O2SAT 96–100; BMI 23.0
--- OUTSIDE RECORDS SUMMARY | 2025-06-24 18:32 | XMS_ITS | Clinical Summary ---
Author Organization [id number] [facility] Address [address] [place] [phone] Phone Care Team Providers Care Content Creation Manager Name Role Phone Aishwarya Nayak APRN Primary Care Physic robbie Conditions or Problems Problem Name Problem Code Onset Date Status Entry Date Provider Comment Standard Description Annotate Body mass index (BMI) 23.0-23.9; adult Z68.23 (ICD-10-CM ) 09/21 Active 09/21 Malumeenu Moseley APRN Body mass index [BMI] 23.0-23.9, adult Body mass index (BMI) 22.0-22.9; adult Z68.22 (ICD-10-CM ) 08/30 Correction 08/30 Malu Zerjosesen GUITAR MAKER Body mass index [BMI] 22.0-22.9, adult Body mass index (BMI) 22.0-22.9; adult Z68.22 (ICD-10-CM ) 08/30 Removed 08/30 Malu Zerjosesen GUITAR MAKER Body mass index [BMI] 22.0-22.9, adult Body mass index (BMI) 23.0-23.9; adult Z68.23 (ICD-10-CM ) 08/16 Correction 08/17 Malu Zerhusen GUITAR MAKER Body mass index [BMI] 23.0-23.9, adult Body mass index (BMI) 23.0-23.9; adult Z68.23 (ICD-10-CM ) 08/16 Removed 08/17 Malu Zerhusen GUITAR MAKER Body mass index [BMI] 23.0-23.9, adult Body mass index (BMI) 23.0-23.9; adult Z68.23 (ICD-10-CM ) 08/09 Correction 08/10 Mlau Lorelei GUITAR MAKER Body mass index [BMI] 23.0-23.9, adult Major depression 038339780 (SNOMED CT) 08/16 Active 08/17 Malu eSymoursen GUITAR MAKER Major depressive disorder Anxiety depression 009509329 (SNOMED CT) 07/11 Inactive 07/11 Malu Seymoursen GUITAR MAKER Mixed anxiety and depressive disorder Body mass index (BMI) 23.0-23.9; adult Z68.23 (ICD-10-CM ) 08/09 Removed 08/10 Malu Seymoursen GUITAR MAKER Body mass index [BMI] 23.0-23.9, adult Body mass index (BMI) 23.0-23.9; adult Z68.23 (ICD-10-CM ) 08/01 Correction 08/01 Malu Seymoursen GUITAR MAKER Body mass index [BMI] 23.0-23.9, adult Body mass index (BMI) 23.0-23.9; adult Z68.23 (ICD-10-CM ) 08/01 Removed 08/01 Malu oLrelei GUITAR MAKER Body mass index [BMI] 23.0-23.9, adult Body mass index (BMI) 23.0-23.9; adult Z68.23 (ICD-10-CM ) 07/30 Correction 07/30 Malu Lorelei NUNEZN Body mass index [BMI] 23.0-23.9, adult Intermittent explosive disorder 16765413 (SNOMED CT) 08/01 Active 08/01 Malu Seymoursen GUITAR MAKER Intermittent explosive disorder Polysubstanc e abuse 585486045 (SNOMED CT) 08/01 Active 08/01 Malu Zerjosesen GUITAR MAKER Harmful pattern of use of multiple substances Body mass index (BMI) 23.0-23.9; adult Z68.23 (ICD-10-CM ) 07/30 Removed 07/30 Laura Dong GUITAR MAKER BCADM Body mass index [BMI] 23.0-23.9, adult Body mass index (BMI) 23.0-23.9; adult Z68.23 (ICD-10-CM ) 07/11 Correction 07/11 Laura Dong GUITAR MAKER BCADM Body mass index [BMI] 23.0-23.9, adult Multiple benign nevi 926657781 (SNOMED CT) 07/30 Active 07/30 Laura Dong GUITAR MAKER BCADM Multiple benign melanocytic nevi Folliculitis 35101826 (SNOMED CT) 07/30 Active 07/30 Laura Dong GUITAR MAKER BCADM Folliculitis Anxiety depression 754642899 (SNOMED CT) 07/11 Removed 07/11 Tiffany Jerel GUITAR MAKER Mixed anxiety and depressive disorder Body mass index (BMI) 23.0-23.9; adult Z68.23 (ICD-10-CM ) 07/11 Removed 07/11 Tiffany Beltrán GUITAR MAKER Body mass index [BMI] 23.0-23.9, adult Body mass index (BMI) 22.0-22.9; adult Z68.22 (ICD-10-CM ) 07/07 Correction 07/07 Tiffany Beltrán APRN Body mass index [BMI] 22.0-22.9, adult Allergic rhinitis 74843441 (SNOMED CT) 07/11 Active 07/11 Tiffany Beltrán APRN Allergic rhinitis Scabies 618549544 (SNOMED CT) 07/11 Inactive 07/11 Tiffany Jeerl GUITAR MAKER Infestation by Sarcoptes scabiei alana hominis Body mass index (BMI) 22.0-22.9; adult Z68.22 (ICD-10-CM ) 07/07 Removed 07/07 Aishwarya Nayak APRN Body mass index [BMI] 22.0-22.9, adult URI ACUTE 99691190 (SNOMED CT) 07/07 Inactive 07/07 Aishwarya Nayak APRN Acute upper respiratory infection Medications Medication Instructions Start Date Stop Date Generic Name NDC Provider CLONIDINE HCL 0.1 MG TABS one and a half tabs at bedtime. 3 CLONIDINE HCL 91507475103 Malu Moseley GUITAR MAKER BUPROPION HCL ER (SR) 100 MG [id number] one in am and one in afternoon. 1 BUPROPION HCL [id number] Malu Moseley APRN CLONIDINE HCL 0.1 MG TABS one and a half tabs at bedtime. 3 CLONIDINE HCL [id number] Malu Moseley GUITAR MAKER BUPROPION HCL ER (SR) 100 MG [id number] one in am and one in afternoon. 1 BUPROPION HCL [id number] Malu Moseley GUITAR MAKER VENLAFAXINE HCL ER 150 MG [id number] TAKE 1TABLET BY MOUTH 1 TIME A Day in am. 7 VENLAFAXINE HCL [id number] Malu Moseley GUITAR MAKER VENLAFAXINE HCL ER 75 MG [id number] After completing the 37.5mg dose TAKE 1 CAPSULE BY MOUTH ONCE A DAY in the morning. 3 VENLAFAXINE HCL [id number] Malu Moseley APRN VENLAFAXINE HCL ER 37.5 MG [id number] Stop the Wellbutrin and start one a day in the morning for 7 days then increase to the 75mg dose. 3 VENLAFAXINE HCL [id number] Malu Moseley GUITAR MAKER VENLAFAXINE HCL ER 150 MG [id number] TAKE 1TABLET BY MOUTH 1 TIME A Day in am. 7 VENLAFAXINE HCL [id number] Malu Moseley APRN CLONIDINE HCL 0.1 MG TABS decrease to one and a half tabs at bedtime. 3 CLONIDINE HCL [id number] Malu Moseley APRN CLONIDINE HCL 0.1 MG TABS Stop the Risperdal and TAKE 1 tablet at bedtime. 6 CLONIDINE HCL [id number] Malu Moseley APRN BUPROPION HCL ER (SR) 100 MG [id number] two in am 6 BUPROPION HCL [id number] Malu Moseley GUITAR MAKER VENLAFAXINE HCL ER 75 MG [id number] After completing the 37.5mg dose TAKE 1 CAPSULE BY MOUTH ONCE A DAY in the morning. 3 VENLAFAXINE HCL [id number] Malu Ahujasen GUITAR MAKER VENLAFAXINE HCL ER 37.5 MG [id number] Stop the Wellbutrin and start one a day in the morning for 7 days then increase to the 75mg dose. 3 VENLAFAXINE HCL [id number] Malu Zerhusen GUITAR MAKER CLONIDINE HCL 0.1 MG TABS Increase to two at bedtime. 3 CLONIDINE HCL [id number] Malu Seymoursen GUITAR MAKER BUPROPION HCL ER (SR) 100 MG [id number] two in am 6 BUPROPION HCL [id number] Malu Zerhusen GUITAR MAKER CLONIDINE HCL 0.1 MG TABS Stop the Risperdal and TAKE 1 tablet at bedtime. 6 CLONIDINE HCL [id number] Malu Seymoursen GUITAR MAKER WELLBUTRIN SR 100 MG [id number] one by mouth in the morning. STOP IF SEVERE AGITATION IS NOTED. 9 BUPROPION HCL [id number] Malu Zerhusen GUITAR MAKER RISPERDAL 0.5 MG TABS TAKE 1 TABLET BY MOUTH EVERY NIGHT 9 RISPERIDONE [id number] Malu Seymoursen GUITAR MAKER BACTRIM DS 800-160 MG TABS TAKE 1 TABLET BY MOUTH 2 TIMES A DAY FOR 10 DAYS 7 SULFAMETHOXAZO LE-TRIMETHOPRI M [id number] Eden Crespo LPN RISPERDAL 0.5 MG TABS TAKE 1 TABLET BY MOUTH EVERY NIGHT 9 RISPERIDONE [id number] Malu Jacqueshusen GUITAR MAKER WELLBUTRIN SR 100 MG [id number] one by mouth in the morning. STOP IF SEVERE AGITATION IS NOTED. 9 BUPROPION HCL [id number] Malu Zerhusen GUITAR MAKER BACTRIM DS 800-160 MG TABS TAKE 1 TABLET BY MOUTH 2 TIMES A DAY FOR 10 DAYS 7 SULFAMETHOXAZO LE-TRIMETHOPRI M [id number] Laura Keagle GUITAR MAKER BCADM FLUTICASONE PROPIONATE 50 MCG/ACT SUSP USE 2 SPRAYS INTO EACH NOSTRIL ONCE A DAY 4 FLUTICASONE PROPIONATE [id number] Laura Keagle GUITAR MAKER BCADM PERMETHRIN 5 % CREA APPLY TO BODY THEN RINSE AFTER 8-12 HOURS. REPEAT IN 1 WEEK NEEDED 8 PERMETHRIN [id number] Tiffany Beltrán GUITAR MAKER FLUTICASONE PROPIONATE 50 MCG/ACT SUSP USE 2 SPRAYS INTO EACH NOSTRIL ONCE A DAY 4 FLUTICASONE PROPIONATE [id number] Tiffany Beltrán GUITAR MAKER Medications Administered No information available. Allergies, Adverse Reactions, Alerts Allergy Name Reaction Description Start Date Severity Statu s Provider PENCILLIN Critical Active Eden cm SOLUTION ENGINEER Results Date Name Value Unit Range Flag Description Office Visit: new pt, cough, congestion tn/bl Rm 9 RAPID STREP negative Streptoc occus pyogenes DNA [Presence] in Throat by EMMY with non-probe detection Plan of Care Type Date Detail [facility]erral [facility], [address] [place] [address], [phone] Referral excluded fr om report: Referral [employer] [facility] Psychiatry [facility], [address] [place] [address], [phone] Pending order Strep Screen [id number] 80 Patient education Medications Procedures Code Procedure Name Date Entry Date [id number] Medication Reconciliation CPT-3074F Most recent systolic blood [...] diastoli c blood pressure <80 mm Hg SCT-[id number] Medication Reconciliation CPT-71586() Psych Dx Eval WITH E&M -MD/GUITAR MAKER Only() CPT-3074F Most recent systolic blood pressure <130 mm Hg CPT-3078F Most recent diastoli c blood pressure <[address] [facility] SCT-[id number] Medication Reconciliation CPT-3074F Most recent systolic blood pressure <130 mm Hg CPT-3079F Most recent diastoli c blood pressure 80-89 mm Hg CPT-3074F Most recent systolic blood pressure <130 mm Hg CPT-3078F Most recent diastoli c blood pressure <80 mm Hg SCT-[id number] Medication Reconciliation [facility] 07/11 SCT-[id number] Medication Reconciliation CPT-3075F Most recent systolic blood pressure 130-139 mm Hg CPT-3078F Most recent diastoli c blood pressure <80 mm Hg CPT-35402 Strep Screen [id number] 4 Vital Signs Date Name Value Unit [...]
--- OUTSIDE RECORDS SUMMARY | 2025-06-24 18:33 | XMS_ITS | Clinical Summary ---
Author Organization [facility] Address [address] [place] [address] Phone Care Team Providers Care Licensed Appraiser Name Role Phone Jordin Madison Primary Care [...] on file Sexual Orientation Not on file Last Filed Vital Signs Vital Sign Reading [...] 3-dose series) 2010 COVID-19 Vaccine ( - 2024-2 6 season) 2025 Influenza Vaccine (#1) 2025 Meningococcal B Vaccine Aged Out No l onger eligible based on patient's age to complete this topic Pneumococcal Vaccine 0-49 Aged Out No longer eligible based on patient's age to complete this topic Care Teams Licensed Appraiser Relationship Specialty Start Date End Date Jordin Madison [address] [place] [id number] PCP - General Family Medicine 10/14/16
--- NOTE | 2025-06-24 19:04 | ED_ITS ---
<Statement entered by Tonya Galarza DO - 06/25/25 01:08> I was consulted by the ANGELINE, and we discussed the complexity of problems being addressed. I approve the treatment and management plan for this patient's care in the emergency department, thus performing a substantial portion of the medical decision making. Tonya Galarza DO Discharge Plan Disposition Patient Disposition: Home, Self-Care Condition: Good Prescriptions Prescriptions: No Action celecoxib 200 mg capsule PO Patient Comments: TAKE 1 CAPSULE BY MOUTH ONCE A DAY ofloxacin 0.3 % drops 10 drp otic (ear) DAILY 7 Days Qty: 10 0RF cyclobenzaprine 5 mg tablet 5 mg PO HS PRN (Reason: muscle spasm) Qty: 10 0RF buprenorphine-naloxone 8-2 mg tablet, sublingual 8 mg SUBLINGUAL DAILY 7 Days Qty: 14 sertraline [Zoloft] 50 mg tablet 50 mg PO DAILY Qty: 30 2RF atomoxetine 40 mg capsule 40 mg PO DAILY Qty: 30 2RF Referrals Follow up/Referrals: Danilo Yoder APRN [Primary Care Provider, Medical] - See instructions Activity Restrictions/Add. Instructions Additional Instructions/Restrictions: Please return to the emergency department with any worsening signs or symptoms. Please continue to take all your at home medication as prescribed. Please refrain from drug use/abuse. Please follow-up with your PCP in the upcoming days/weeks. Clinical Impressions Clinical Impression: Adverse reaction to drug Print Language Print Language: Azeri Discharge ED Provider: Tonya Galarza General Adult HPI General Chief complaint: Dizziness Stated complaint: weakness,skin crawling,thirsty Time Seen by Provider: 06/24/25 19:01 Mode of Arrival: Ambulatory Source of Information: Patient Description of Symptoms (Recalled from ER Triage Doc. by RN): pt c/o feeling shaky, disoriented, and dehydrated the past two days. pt states a normal 20 minute walk took 45 min to 1 hour to complete due to shortness of breath and fatigued. pt states they feel dehydrated and skin feels tingly and crawly . pt states they passed out and fell asleep in a car from 5am to 4pm. pt c/o memory issues and disassociating for a extended period of time. History of Present Illness HPI narrative: 35-year-old male presents to the emergency department with a myriad of symptomatology, patient states the symptoms have been going on for the last 2 days, patient states that he has had some dyspnea on exertion, generalized malaise, fatigue, as well as a cough and sometimes, he also endorses shakiness , and concerns of being dehydrated , describes his skin is tingly and crawly , denies any overt fever chills chest pain, denies any nausea abdominal pain constipation diarrhea no urinary symptomatology, patient is a current everyday tobacco user (smokeless tobacco, denies any alcohol or drug use, is on Suboxone therapy, other past medical history is consistent with ISA/MDD and ADHD. Initial triage vitals notable for tachycardia otherwise unremarkable. Please note that above description of symptoms, in this electronic medical record under categorization of recalled from ER triage doctor by RN are reflective of an initial nursing assessment, however, is not reflective of my full history and physical exam that was personally taken and clarified. Consequentially, this preceding description of symptoms, which may include the patient's categorized chief complaint in the EMR, do not reflect my personal clinical impression, and the ultimate description of history of present illness and patient stated complaints should be deferred to this section of the note. Unless stated otherwise or congruent with this section of the note, additional signs, symptoms, or incongruence should be interpreted as inaccurate with my clinical impression. Onset (ago): day(s) Related Data Home Medications ?Medication ?Instructions ?Recorded ?Confirmed buprenorphine 8 mg-naloxone 2 mg 8 mg sublingual DAILY addiction 7 08/25/18 05/24/25 sublingual tablet days #14 tabs celecoxib 200 mg capsule mg PO 02/27/25 05/24/25 Previous Rx's ?Medication ?Instructions ?Recorded cyclobenzaprine 5 mg tablet 5 mg PO HS PRN muscle spas m #10 02/27/25 tabs ofloxacin 0.3 % ear drops 10 drp otic (ear) DAILY 7 da ys #10 02/27/25 mL atomoxetine 40 mg capsule 40 mg PO DAILY #30 caps 05/05 07/28 sertraline 50 mg tablet (Zoloft) 50 mg PO DAILY #30 ta bs 05/24/25 Allergies Allergy/AdvReac Type Severity Reaction Status Date / Time penicillin G (PENICILLIN G) Allergy Intermediate Rash Verified 05/24/25 13:03 [facility] Disclaimer: The information contained in this section may have been updated after the patient was seen, as this information can be updated by other users. Medical History Otitis media Sinusitis 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 Smoking Status: Current every day smoker tobacco type: smokeless tobacco alcohol intake: never substance use type: former substance user, heroin, opiates and other current occupational status: other Travel in the last 8 weeks?: None housing: house number of children: 2 Have you lived/traveled outside US in past 30 days?: No Contact w/someone who lives/traveled outside US past 30 days?: No Exposure to someone with infectious disease in past 14 days?: No Do you have a fever (greater than 100.4 F or 38 C)?: No Have you tested positive for COVID-19?: No Exposed to someone with COVID-19 in past 14 days?: No Do you have a sore throat?: No Do you have a cough?: No Do you have any weakness?: No Do you have any diarrhea?: No Are you experiencing any unusual bleeding?: No Do you have any muscle aches/pain?: No Do you have any abdominal pain?: No Are you experiencing loss of taste or smell?: No Other Medical History Have you received the Flu Vaccine for this season: No Have you received the Pneumonia Vaccine: No ROS Obtained: Yes All systems reviewed & no additional complaints except as documented Physical Exam General General appearance: alert and in no apparent distress Head Head exam: atraumatic and normocephalic Eye Eye exam: Present PERRL and EOMI ENT ENT exam: Present mucous membranes moist Neck Neck exam: Present normal inspection Chest Chest inspection: Present normal inspection and symmetric chest wall rise Respiratory Respiratory exam: Present normal lung sounds bilaterally; Absent respiratory distress Cardiovascular Cardiovascular exam: Present normal rhythm and tachycardia; Absent regular rate Abdominal Exam Abdominal exam: Present soft; Absent tenderness, guarding, rebound or rigidity Extremities Exam Extremities exam: Present normal inspection Neurological Exam Neurological exam: Present alert and oriented X3 Psychiatric Psychiatric exam: Present normal affect Skin Skin exam: Present warm and dry Medical Decision Making Medical Records Medical records reviewed: Yes I reviewed the patient's medical records. Screening: Per USPSTF and CDC recommendations, given the prevalence of disease in our region, it is our hospital?s policy to screen for HIV and viral Hepatitis for all patients aged 18 and over and those with ongoing risk factors. Nelson Inquiry Pt receiving controlled substance: No Nelson was queried for this patient: No Vital Signs: 06/24/25 18:09 06/24/25 19:24 06/24/25 19:30 Temperature 98.2 F Temperature Source Oral Pulse Rate 62 Pulse Rate [Right Radial] 106 H Respiratory Rate 20 Blood Pressure 137/94 H 128/79 Blood Pressure [Right Arm] 133/95 H Blood Pressure Mean 103 95 Blood Pressure Mean [Right Arm] 107 Blood Pressure Source [Right Arm] Automatic Cuff 02 Sat by Pulse Oximetry 100 97 Oxygen Delivery Method Room Air Room Air 06/24/25 19:30 06/24/25 19:46 06/24/25 20:00 Temperature Temperature Source Pulse Rate 97 H 86 Pulse Rate [Right Radial] Respiratory Rate Blood Pressure 138/80 Blood Pressure [Right Arm] Blood Pressure Mean 93 Blood Pressure Mean [Right Arm] Blood Pressure Source [Right Arm] 02 Sat by Pulse Oximetry 100 100 Oxygen Delivery Method Room Air Room Air 06/24/25 20:00 06/24/25 20:15 06/24/25 20:30 Temperature Temperature Source Pulse Rate 78 68 74 Pulse Rate [Right Radial] Respiratory Rate Blood Pressure Blood Pressure [Right Arm] Blood Pressure Mean Blood Pressure Mean [Right Arm] Blood Pressure Source [Right Arm] 02 Sat by Pulse Oximetry 98 98 100 Oxygen Delivery Method Room Air Room Air Room Air 06/24/25 20:32 06/24/25 20:32 06/24/25 20:45 Temperature Temperature Source Pulse Rate 70 69 Pulse Rate [Right Radial] Respiratory Rate Blood Pressure 123/65 Blood Pressure [Right Arm] Blood Pressure Mean 84 Blood Pressure Mean [Right Arm] Blood Pressure Source [Right Arm] 02 Sat by Pulse Oximetry 96 100 Oxygen Delivery Method Room Air Room Air Lab Data Lab results reviewed: Yes I reviewed the patient's lab results. Lab Results 06/24/25 19:20: WBC 5.1, RBC 4.86, Hgb 14.1, Hct 40.8 L, MCV 84.0, MCH 29.0, MCHC 34.6, RDW 11.8, Plt Count 271, MPV 10.1, Neut % (Auto) 39.6, Lymph % (Auto) 43.6, Marin % (Auto) 11.5 H, Eos % (Auto) 4.3, Baso % (Auto) 0.8, Neut # (Auto) 2.0, Lymph # (Auto) 2.2, Marin # (Auto) 0.6, Eos # (Auto) 0.2, Baso # (Auto) 0.0, PT 11.5, INR 1.04, D-Dimer 0.32, Sodium 140, Potassium 3.2 L, Chloride 99, C arbon Dioxide 34 H, Anion Gap 10.2, BUN 21 H, Creatinine 1.10, Estimated Creat Clear 103, Estimated GFR 77, Est GFR ( Amer) 93, Glucose 106 H, Calcium 9.4, Magnesium 2.3, Total Bilirubin 1.2, AST 67 H, ALT 41, Alkaline Phosphatase 86, Troponin I < 0.01, NT-Pro-B Natriuret Pep 30.7, Total Protein 8.6 H, Albumin 5.3 H, Globulin 3.3 H, Albumin/Globulin Ratio 1.6, TSH 0.51, Thyroxine (T4) 11.2 H, Plasma/Serum Alcohol < 10 06/24/25 20:25: Urine Opiates Screen Negative, Urine Methadone Screen Negative, Ur Barbituates Screen Negative, Ur Phencyclidine Scrn Negative, U Benzodiazepines Scrn Negative, Urine Cocaine Screen Negative, U Marijuana (THC) Screen Negative 06/24/25 19:20 06/24/25 19:20 Orders (Tests/Meds): ED MEDICATIONS Discontinued Medications Generic Name Dose Route Start Last Admin Trade Name Freq PRN Reason Stop Dose Admin Lactated Ringer's 1,000 mls @ 999 mls/hr 06/24/25 19:31 06/24/25 20:48 Lactated Ringer's 1000 Ml Bag IV 06/24/25 20:31 Infused .Q1H1M ONE Infusion Potassium Chloride 40 meq 06/24/25 20:20 06/24/25 20:29 Potassium Chloride 20meq Tab PO 06/24/25 20:21 40 meq ONCE ONE Administration ORDERS Category Date Time Status XR chest portable Stat Exams 06/24/25 19:11 Completed Complete Blood Count Auto Diff Stat Lab 06/24/25 19:20 Completed Comprehensive Metabolic Panel Stat Lab 06/24/25 19:20 Completed D-Dimer Stat Lab 06/24/25 19:20 Completed Drug Screen,Urine Stat Lab 06/24/25 20:25 Results Ethanol [Ethyl Alcohol] Stat Lab 06/24/25 19:20 Completed HIV Combo Stat Lab 06/24/25 19:20 Received Hepatitis C Ab Qual. W/ RFX Stat Lab 06/24/25 19:20 Completed Magnesium Stat Lab 06/24/25 19:20 Completed NT Pro Brain Natriuretic Pep. Stat Lab 06/24/25 19:20 Completed PT INR [Prothrombin Time INR] Stat Lab 06/24/25 19:20 Completed T4 (Thyroxine) Stat Lab 06/24/25 19:20 Completed TSH [Thyroid Stimulating Hormone] Stat Lab 06/24/25 19:20 Completed Troponin I Q3H Lab 06/24/25 22:15 Ordered Troponin I Q3H Lab 06/25/25 01:15 Ordered Troponin I Stat Lab 06/24/25 19:20 Completed Urinalysis and Microscopic Stat Lab 06/24/25 20:25 Received Medical Decision Narrative: 35-year-old male presents to the emergency department with multiple symptoms going on for the last 2, see HPI for detailed past medical history, differential diagnose include but not limited to, cardiac arrhythmia, electrolyte disturbance, anxiety, panic attack, toxic encephalopathy, drug side effect, hypovolemia, thyrotoxicosis , PE, among others. I discussed this patient's case with the attending physician Dr. Galarza Will obtain basic laboratory studies, UDS, urinalysis, D-dimer, ethyl alcohol level, magnesium level, TSH and T4, coags, troponin. Will obtain EKG, chest x- ray, will give 1 L LR IV. Also of note, patient notified me that he did smoke some meth on Tuesday . CBC is unremarkable Coags within normal limits Mild hypokalemia noted on CMP at 3.2, thus will replace with 40 mEq p.o. potassium. Minimal BUN elevation 21, AST elevation 67 D-dimer 0.32, thus effectively ruling out PE/VTE, ethyl alcohol level within normal limits. T4 is minimally elevated 11,2, troponin is less than 0.01, proBNP within normal limits TSH within normal limit Reviewed the patient's chest x-ray along the corresponding radiologic report, stable chest x-ray with no acute disease. I discussed the results with the patient at the bedside, patient is resting comfortably in the bed, tachycardia is improved, no acute symptomatology, has remained hemodynamically stable without his time in the emergency department. Thought to be some withdrawal symptomatology as a side effect from methamphetamine abuse/use 2 days ago. Patient was given strict ED return precautions. Patient voiced understanding and agreement with the current treatment plan/discharge plan. Critical Care Critical Care Time Critical Care Time: No
--- NOTE | 2025-06-24 19:11 | XR_ITS ---
PROCEDURE INFORMATION: Exam: XR Chest Exam date and time: 06/24/2025 7:27 PM Age: 35 years old Clinical indication: Shortness of breath; Additional info: SOA TECHNIQUE: Imaging protocol: Radiologic exam of the chest. Views: 1 view. COMPARISON: 1. CR XR CHEST AP 12/14/2023 6:[address] ANGIO CHEST 12/14/2023 7:09 PM FINDINGS: Lungs: Unremarkable. No consolidation. Pleural spaces: Unremarkable. No pleural effusion. No pneumothorax. Heart/Mediastinum: Unremarkable. No cardiomegaly. Bones/joints: Unremarkable. IMPRESSION: Stable chest x-ray with no acute disease.
--- NOTE | 2025-06-24 19:23 | ECG_ITS ---
APPROVED REPORT Exam: Resting ECG HR:85 bpm ECG Measurements Heart Rate 85 AXES MI 155 P 51 QRSd 89 QRS 71 QT 372 T 50 QTc 414 Conclusion Normal sinus rhythm without acute ST or T wave changes concerning for ischemia Electronically signed by : Tonya Galarza, 06/26/2025 01:02:52
[2025-06-24] MEDS: LACTATED RINGERS 1000ML 1,000 ML 999 ML IV (19:34)
[2025-06-24 19:46] LABS: Hematocrit 40.8 % (42.0-52.0); Hemoglobin 14.1 g/dL (14.1-18.0); Immature Granulocytes % 0.2 %; Mean Corpuscular HGB Conc 34.6 g/dL (31.8-35.4); Mean Corpuscular Hemoglobin 29.0 pg (27.0-31.2); Mean Corpuscular Volume 84.0 fl (80-94); Nucleated Red Blood Cells % 0 %; Platelet Count 271 K/mm3 (142-424); Red Blood Count 4.86 M/mm3 (4.60-6.20); Red Cell Distribution Width-SD 35.8 fL; White Blood Count 5.1 K/mm3 (4.8-10.8)
[2025-06-24 19:57] LABS: INR 1.04 (0.9-1.1); Prothrombin Time 11.5 seconds (10.1-12.5)
[2025-06-24 20:03] LABS: Alanine Aminotransferase 41 U/L (12-78); Albumin Level 5.3 g/dl (3.5-5.0); Albumin/Globulin Ratio 1.6 (1.1-1.8); Alkaline Phosphatase 86 U/L (38-126); Anion Gap 10.2 mEq/L (5-15); Aspartate Amino Transferase 67 U/L (17-59); Bilirubin,Total 1.2 mg/dl (0.2-1.3); Blood Urea Nitrogen 21 mg/dl (9-20); Calcium 9.4 mg/dl (8.4-10.2); Carbon Dioxide 34 mmol/L (22.0-30.0); Chloride 99 mmol/L (98-107); Creatinine Clearance Estimated 103 mL/min (50-200); Creatinine,Serum 1.10 mg/dl (0.66-1.25); Estimated Glomerular Filt Rate 77 ml/min (>60); GFR (African American) 93 ML/MIN (>60); Globulin 3.3 g/dL (1.3-3.2); Glucose 106 mg/dl (74-100); Magnesium 2.3 mg/dl (1.6-2.3); Potassium 3.2 mmoL/L (3.5-5.1); Sodium 140 mmol/L (136-145); Total Protein,Serum 8.6 g/dl (6.3-8.2)
[2025-06-24 20:15] LABS: NT Pro Brain Natriuretic Pep. 30.7 pg/mL (0-125)
[2025-06-24 20:16] LABS: D-Dimer 0.32 ug/mL (0.0-0.5); Troponin I < 0.01 ng/ml (0.00-0.034)
[2025-06-24 20:20] LABS: T4 (Thyroxine) 11.2 ug/dl (5.53-11.0)
[2025-06-24 20:28] LABS: Microscopic, Urine URINE MICROSCOPIC (MICROSCOPIC)
[2025-06-24] MEDS: POTASSIUM CHLORIDE 20MEQ TAB 40 MEQ PO (20:29)
[2025-06-24 20:31] LABS: Bilirubin,Urine Negative (Negative); Color,Urine YELLOW (Yellow); Glucose,Urine (UA) Negative (Negative); Ketones,Urine 1+ (Negative); Leukocyte Esterase,Urine Negative (Negative); PH,Urine 6.0 (5.0-8.5); Protein,Urine Negative (Negative); Specific Gravity, Urine >= 1.030 (1.005-1.030); Urobilinogen,Urine 0.2 EU/dl (0.2)
[2025-06-24 20:33] LABS: Thyroid Stimulating Hormone 0.51 uIU/mL (0.465-4.68)
[2025-06-24 20:43] LABS: Barbiturates Screen,Urine Negative ng/ml (<200)
[2025-06-24 20:44] LABS: Benzodiazepines Screen,Urine Negative ng/ml (<200)
[2025-06-24 20:46] LABS: Methadone Screen,Urine Negative ng/ml (<300)
[2025-06-24 20:47] LABS: Phencyclidine Screen,Urine Negative ng/ml (<25)
[2025-06-24 20:48] LABS: Opiate Screen,Urine Negative ng/ml (<300)
[2025-06-24 20:51] LABS: Hepatitis C Ab Qual. W/ RFX NEGATIVE (Negative)
[2025-06-24 22:58] LABS: Bacteria,Urine 1+ /lpf; Calcium Oxalate Crystals,Urine 1+ /lpf; Mucus,Urine 1+ /lpf
== END 2025-06-24 21:02 | disposition home or self-care (01) ==
PROVIDERS: Physician Assistant; Emergency Provider Student in an Organized Health Care Education/Training Program; PCP Nurse Practitioner Family
DX: R06.02 Shortness of breath (principal); R20.2 Paresthesia of skin; T43.655A Adverse effect of methamphetamines, initial encounter; F15.988 Other stimulant use, unspecified with other stimulant-induced disorder
CPT/HCPCS: 71045; 80053; 80307; 80320; 80324; 81001; 83735; 83880; 84436; 84443; 84484; 85025; 85378; 85610; 86803; 87389; 93005; 96360; 99285; J7120